=== PATIENT | female | born 1970 | race American Indian/Alaskan Native ===

== ENCOUNTER 2019-04-04 01:36 | Inpatient (IN) | payer SELFPAY ==
[2019-04-04] MEDS ORDERED: TYLENOL PO STA (01:44)
[2019-04-04] MEDS ORDERED: NACL 0.9% 500 ML 500 ML IV ONE (01:44)
[2019-04-04] MEDS ORDERED: SUBLIMAZE IV ONE (02:22)
[2019-04-04] MEDS ORDERED: NACL 0.9% 1000 ML 1,000 ML IV ONE (02:22)
[2019-04-04] MEDS ORDERED: NACL 0.9% 1000 ML 2,000 ML IV ONE (02:22)
[2019-04-04] MEDS ORDERED: NACL 0.9% 1000 ML 2,000 ML ONE (02:22)
--- NOTE | 2019-04-04 02:24 | Emergency Department Report ---
ED General Adult HPI - General Chief complaint: Fever Stated complaint: L LEG PAIN/PAIN OVER BODY Time Seen by Provider: 04/04/19 02:13 Source: patient, RN notes reviewed Mode of arrival: Ambulatory Limitations: Physical Limitation - History of Present Illness Initial comments: Primary care Dr.: Dr. Dunn; [facility] Past medical history: Hypertension, anemia This is a 48-year-old female. The patient is not known to this provider prev iously. The patient reports that she is not . The patient presents to the emergency room with a complaint of nontraumatic left sided leg pain, redness, discomfort. There is no trauma that she can recall. The pain started in her left groin, and moves distally on the anterior aspect of her left anterior lower extremity. The pain is burning and sharp, increases with palpation, and it decreases with rest. Positive fevers, positive chills, positive malaise, positive fatigue, positive anxiety. Positive mild headache. There is no neck stiffness. There is no sore throat. There is no chest pain. There is no abdominal pain. There are no urinary symptoms. There is no focal extremity weakness or numbness. Positive improvement with pain with IV pain medication ordered in the emergency room. -: Gradual, hour(s) Location: left, lower extremity Radiation: extremity Quality: aching Consistency: other Improves with: other Worsens with: other - Related Data Allergies Allergy/AdvReac Type Severity Reaction Status Date / Time No Known Allergies Allergy Verified 06/20/15 14:21 ED Review of Systems ROS: Stated complaint: L LEG PAIN/PAIN OVER BODY Other details as noted in HPI Constitutional: chills, fever, malaise Eyes: denies: eye discharge ENT: denies: epistaxis Respiratory: denies: cough Cardiovascular: denies: chest pain Gastrointestinal: denies: abdominal pain Genitourinary: denies: urgency, dysuria Musculoskeletal: arthralgia, myalgia Skin: rash, lesions Neurological: headache, weakness Psychiatric: anxiety ED Past Medical Hx - Past Medical History Previous Medical History?: Yes Hx Hypertension: Yes - Surgical History Past Surgical History?: Yes Additional Surgical History: tubal ligation - Social History Smoking Status: Never Smoker Substance Use Type: None ED Physical Exam - General Limitations: No Limitations General appearance: alert, anxious, in distress, obese - Head Head exam: Present: atraumatic, normocephalic - Eye Eye exam: Present: normal appearance, PERRL, EOMI. Absent: nystagmus - ENT ENT exam: Present: normal exam, normal orophraynx, mucous membranes moist, normal external ear exam - Neck Neck exam: Present: normal inspection, full ROM. Absent: tenderness, meningismus - Respiratory Respiratory exam: Present: normal lung sounds bilaterally. Absent: respiratory distress - Cardiovascular Cardiovascular Exam: Present: normal rhythm, tachycardia, normal heart sounds. Absent: systolic murmur, diastolic murmur, rubs, gallop - GI/Abdominal GI/Abdominal exam: Present: soft. Absent: distended, tenderness, guarding, re bound, rigid, pulsatile mass - Extremities Exam Extremities exam: Present: full ROM, tenderness (there is left groin tenderness. Chaperoned by nurse Mendez Baird. There is left medial thigh tenderness. There is left medial thigh warmth. The compartments are soft. There is left distal anterior tibial erythema. Compartments soft. No pain with passive range of motion of the great toe.), other (2+ pulses noted in the bilateral upper, lower extremities. Compartments soft. No long bony tenderness. The pelvis is stable.). Absent: normal inspection, pedal edema, joint swelling, calf tenderness - Back Exam Back exam: Present: normal inspection, full ROM. Absent: tenderness, CVA tenderness (R), paraspinal tenderness, vertebral tenderness - Neurological Exam Neurological exam: Present: alert, oriented X3, other (Extraocular movements intact. Tongue midline. No facial droop. Facial sensation intact to light touch in the V1, V2, V3 distribution bilaterally. 5 and 5 strength in 4 extremities.. Sensation is intact to light touch in 4 extremities.). Absent: motor sensory deficit - Psychiatric Psychiatric exam: Present: anxious - Skin Skin exam: Present: warm, erythema ED Course Vital Signs 04/04/19 04/04/19 04/04/19 01:39 01:41 02:18 Temperature 103.1 F H 103.1 F H Pulse Rate 133 H 132 H 128 H Respiratory 18 18 27 H Rate Blood Pressure 146/80 146/80 O2 Sat by Pulse 100 98 Oximetry 04/04/19 04/04/19 04/04/19 02:30 02:39 02:45 Temperature Pulse Rate 117 H 115 H Respiratory 17 18 20 Rate Blood Pressure 148/79 134/77 O2 Sat by Pulse 98 99 Oximetry 04/04/19 04/04/19 04/04/19 03:00 03:17 03:31 Temperature Pulse Rate 120 H 117 H 119 H Respiratory 23 18 24 Rate Blood Pressure 139/75 134/77 134/77 O2 Sat by Pulse 97 97 Oximetry - Reevaluation(s) Reevaluation #1: 04/04/19 03:05 Differential diagnosis, including but not limited to: Cellulitis, lymphangitis, myositis, sepsis Assessment and plan: 48-year-old female with evidence of left lower extremity cellulitis, manifest by warmth, redness, tenderness, fever, tachycardia, leukocytosis, meets criteria for sepsis secondary to presumed soft tissue infec tion. There is no crepitus noted. There is no pain with passive range of motion. The muscular compartments are soft. The patient is neurovascularly intact. This exam is not consistent with rhabdomyolysis, necrotizing fasciitis, or deep space infection. Patient feels improved after pain medication. Patient will be managed according to the sepsis pathway. Discussed this with patient and family who verbalized understanding, and who are amenable to admission for medical optimization. Reevaluation #2: 04/04/19 03:33 Dr. Diop accepts the patient to the medical service. ED Medical Decision Making - Lab Data Result diagrams: 04/04/19 01:52 04/04/19 01:52 Vital Signs 04/04/19 04/04/19 01:39 02:39 Temperature 103.1 F H Pulse Rate 133 H Respiratory 18 18 Rate Blood Pressure 146/80 O2 Sat by Pulse 100 Oximetry Lab Results 04/04/19 04/04/19 04/04/19 Range/Units 01:52 01:52 01:52 WBC 19.9 H (4.5-11.0) K/mm3 RBC 4.70 (3.65-5.03) M/mm3 Hgb 10.0 L (10.1-14.3) gm/dl Hct 33.0 (30.3-42.9) % MCV 70 L (79-97) fl MCH 21 L (28-32) pg MCHC 30 (30-34) % RDW 20.1 H (13.2-15.2) % Plt Count 386 (140-440) K/mm3 Lymph % (Auto) 5.9 L (13.4-35.0) % [place] % (Auto) 3.9 (0.0-7.3) % Eos % (Auto) 0.0 (0.0-4.3) % Baso % (Auto) 0.4 (0.0-1.8) % Lymph # 1.2 (1.2-5.4) K/mm3 [place] # 0.8 (0.0-0.8) K/mm3 Eos # 0.0 (0.0-0.4) K/mm3 Baso # 0.1 (0.0-0.1) K/mm3 Seg Neutrophils % 89.8 H (40.0-70.0) % Seg Neutrophils # 17.8 H (1.8-7.7) K/mm3 PT 12.7 (12.2-14.9) Sec. INR 0.90 (0.87-1.13) VBG pH (7.320-7.420) Sodium 136 L (137-145) mmol/L Potassium 3.6 (3.6-5.0) mmol/L Chloride 95.5 L (98-107) mmol/L Carbon Dioxide 26 (22-30) mmol/L Anion Gap 18 mmol/L BUN 8 (7-17) mg/dL Creatinine 0.8 (0.7-1.2) mg/dL Estimated GFR > 60 ml/min BUN/Creatinine Ratio 10 % Glucose 115 H (65-100) mg/dL Lactic Acid (0.7-2.0) mmol/L Calcium 9.4 (8.4-10.2) mg/dL Magnesium 1.60 L (1.7-2.3) mg/dL Total Bilirubin 0.50 (0.1-1.2) mg/dL AST 22 (5-40) units/L ALT 14 (7-56) units/L Alkaline Phosphatase 70 (35-129) units/L Total Creatine Kinase 212 H (30-135) units/L Total Protein 8.1 (6.3-8.2) g/dL Albumin 4.1 (3.9-5) g/dL Albumin/Globulin Ratio 1.0 % HCG, Quant (0-4) mIU/mL 04/04/19 04/04/19 04/04/19 Range/Units 01:52 01:52 02:06 WBC (4.5-11.0) K/mm3 RBC (3.65-5.03) M/mm3 Hgb (10.1-14.3) gm/dl Hct (30.3-42.9) % MCV (79-97) fl MCH (28-32) pg MCHC (30-34) % RDW (13.2-15.2) % Plt Count (140-440) K/mm3 Lymph % (Auto) (13.4-35.0) % [place] % (Auto) (0.0-7.3) % Eos % (Auto) (0.0-4.3) % Baso % (Auto) (0.0-1.8) % Lymph # (1.2-5.4) K/mm3 [place] # (0.0-0.8) K/mm3 Eos # (0.0-0.4) K/mm3 Baso # (0.0-0.1) K/mm3 Seg Neutrophils % (40.0-70.0) % Seg Neutrophils # (1.8-7.7) K/mm3 PT (12.2-14.9) Sec. INR (0.87-1.13) VBG pH 7.375 (7.320-7.420) Sodium (137-145) mmol/L Potassium (3.6-5.0) mmol/L Chloride (98-107) mmol/L Carbon Dioxide (22-30) mmol/L Anion Gap mmol/L BUN (7-17) mg/dL Creatinine (0.7-1.2) mg/dL Estimated GFR ml/min BUN/Creatinine Ratio % Glucose (65-100) mg/dL Lactic Acid 2.50 H* (0.7-2.0) mmol/L Calcium (8.4-10.2) mg/dL Magnesium (1.7-2.3) mg/dL Total Bilirubin (0.1-1.2) mg/dL AST (5-40) units/L ALT (7-56) units/L Alkaline Phosphatase (35-129) units/L Total Creatine Kinase (30-135) units/L Total Protein (6.3-8.2) g/dL Albumin (3.9-5) g/dL Albumin/Globulin Ratio % HCG, Quant < 2 (0-4) mIU/mL - EKG Data -: EKG Interpreted by Me Rate: tachycardia - EKG Data When compared to previous EKG there are: previous EKG unavailable 04/04/19 03:04 Sinus tachycardia, 121 bpm, normal axis, normal intervals, not consistent with ST elevation myocardial infarction, there is no prior EKG available for comparison. - Radiology Data Radiology results: pending, image reviewed interpreted by me: X-ray of the chest negative for acute disease. X-ray of the left femur, knee, tibia/fibula negative for acute disease. Critical Care Time: Yes Critical care time in (mins) excluding proc time.: 35 Critical care attestation.: If time is entered above; I have spent that time in minutes in the direct care of this critically ill patient, excluding procedure time. ED Disposition Clinical Impression: Sepsis due to skin infection, Hypomagnesemia Disposition: OP ADMIT IP TO THIS HOSP Is pt being admited?: Yes Condition: Good Referrals: RUPERTO KASPER MD [Primary Care Provider] - 3-5 Days
[2019-04-04 02:26] LABS: INR 0.9 (0.87-1.13)
[2019-04-04 02:35] LABS: Alanine Aminotransferase 14 units/L (7-56); Albumin 4.1 g/dL (3.9-5); BUN/Creatinine Ratio 10; Blood Urea Nitrogen 8 mg/dL (7-17); Calcium 9.4 mg/dL (8.4-10.2); Hemolysis Index 0
[2019-04-04 02:41] LABS: Basophils # (Auto) 0.1 K/mm3 (0.0-0.1); Basophils % (Auto) 0.4 % (0.0-1.8); Lymphocytes # (Auto) 1.2 K/mm3 (1.2-5.4); Lymphocytes % (Auto) 5.9 % (13.4-35.0); Mean Corpuscular HGB Conc 30 % (30-34); Mean Corpuscular Volume 70 fl (79-97); Monocytes # (Auto) 0.8 K/mm3 (0.0-0.8); Monocytes % (Auto) 3.9 % (0.0-7.3); Platelet Count 386 K/mm3 (140-440)
[2019-04-04] MEDS ORDERED: MAGNESIUM SULFATE 2GM/50ML 2 GM/50 ML BAG IV ONE (02:41)
[2019-04-04] MEDS ORDERED: ANCEF IV ONE (02:45)
[2019-04-04] MEDS ORDERED: NACL 0.9% IV ONE (02:45)
[2019-04-04 02:47] LABS: Red Cell Distribution Width 20.1 % (13.2-15.2)
[2019-04-04] MEDS ORDERED: ANCEF/STERILE WATER 2 GM/20 ML 2 GM/20 ML SYRINGE IV NR (03:00)
[2019-04-04] MEDS ORDERED: VANCOMYCIN/NS 1 GM/250 ML 1 GM/250 ML BAG IV ONE (04:00)
[2019-04-04] MEDS ORDERED: SODIUM CHLORIDE FLUSH SYRINGE 10 ML IV PRN (04:26)
[2019-04-04] MEDS ORDERED: MORPHINE IV PRN (04:26)
[2019-04-04] MEDS ORDERED: PROVENTIL IH PRN (04:26)
[2019-04-04] MEDS ORDERED: ZOFRAN IV PRN (04:26)
--- NOTE | 2019-04-04 04:36 | XRay Report ---
PROCEDURE: XR CHEST 1V AP TECHNIQUE: Chest radiograph single view. HISTORY: possible Sepsis COMPARISONS: None . FINDINGS: Heart: Normal. Mediastinum/Vessels: Normal. Lungs/Pleural space: Normal. Bony thorax: No acute osseous abnormality. Life support devices: None. IMPRESSION: No acute cardiopulmonary abnormality. This document is electronically signed by Romain Davidson MD., Apr 04 2019 04:34:27 AM ET
--- NOTE | 2019-04-04 04:55 | History and Physical Report ---
<MARIAN CHO - Last Filed: 04/04/19 04:58> History of Present Illness Date of examination: 04/04/19 Date of admission: 04/04/2019 Chief complaint: Left leg lesion and pain History of present illness: Patient is a 48-year-old female with PMHx of HTN, sarcoidosis, obesity who presents to the ER with left leg pain and lesion. Patient states that the pain started this morning under the left leg, and left groin and labial and travel to the left lower leg, is a cluster of red macular lesions, not nonpruritic, patient states that that she comes to the ER for evaluation of the lesion. Patient reports occasional shortness of breath for which she uses a inhaler, right perineal pain with no visible lesions, denies any cough, denies any chest pain, patient's reports shaking chills and palpitation. On arrival to the ER patient had a temperature of 103.1 month her heart rate is 133 she was started on IV vancomycin and Ceftriazone and admitted for further evaluation of her presenting symptoms. Past History Past Medical History: hypertension, other (sarcoidosis) Past Surgical History: No surgical history Social history: no significant social history Family history: no significant family history Medications and Allergies Allergies Allergy/AdvReac Type Severity Reaction Status Date / Time No Known Allergies Allergy Verified 06/20/15 14:21 Home Medications Medication Instructions Recorded Confirmed Last Taken Type Montelukast 10 mg PO DAILY 04/04/19 04/04/19 Unknown History hydroCHLOROthiazide 25 mg PO DAILY 04/04/19 04/04/19 Unknown History Potassium Chloride [K-Dur] 20 meq PO BID #8 tab 04/06/19 Unknown Rx cephALEXin [Keflex] 1,000 mg PO Q6HR 5 Days #40 capsule 04/06/19 Unknown Rx oxyCODONE /ACETAMINOPHEN [Percocet 1 tab PO Q6H PRN #10 tablet 04/06/19 Unknown Rx 5/325 mg] Active Meds: Active Medications Acetaminophen (Tylenol) 650 mg PO Q4H PRN PRN Reason: Pain MILD(1-3)/Fever >100.5/RODRIGUEZ Albuterol (Proventil) 2.5 mg IH Q3HRT PRN PRN Reason: Shortness Of Breath Enoxaparin Sodium (Lovenox) 40 mg SUB-Q QDAY PRASAD Vancomycin HCl (Vancomycin/Ns 1 Gm/250 Ml) 1 gm in 250 mls @ 167.007 mls/hr IV ONCE ONE; Protocol Stop: 04/04/19 05:29 Last Admin: 04/04/19 04:00 Dose: 167.007 mls/hr Documented by: Piperacillin Sod/Tazobactam Sod (Zosyn/Ns 4.5gm/100ml) 4.5 gm in 100 mls @ 200 mls/hr IV Q8HR PRASAD; Protocol Morphine Sulfate (Morphine) 2 mg IV Q4H PRN PRN Reason: Pain, Moderate (4-6) Ondansetron HCl (Zofran) 4 mg IV Q8H PRN PRN Reason: Nausea And Vomiting Sodium Chloride (Sodium Chloride Flush Syringe 10 Ml) 10 ml IV BID PRASAD Sodium Chloride (Sodium Chloride Flush Syringe 10 Ml) 10 ml IV PRN PRN PRN Reason: LINE FLUSH Review of Systems Constitutional: fever (chamber), chills, other Integumentary: rash, lesions Exam - Constitutional Vitals: Temp Pulse Resp BP Pulse Ox 103.1 F H 119 H 24 134/77 97 04/04/19 01:41 04/04/19 03:31 04/04/19 03:31 04/04/19 03:31 04/04/19 03:31 General appearance: Present: mild distress - EENT Eyes: Present: PERRL, EOM intact ENT: hearing intact - Neck Neck: Present: supple, normal ROM - Respiratory Respiratory effort: normal Respiratory: bilateral: diminished - Cardiovascular Rhythm: other (tachycardia) Heart Sounds: Present: S1 & S2 Peripheral Pulses: within normal limits - Abdominal General gastrointestinal: Present: deferred Female genitourinary: Present: deferred - Rectal Rectal Exam: deferred - Integumentary Integumentary: Present: warm, dry, erythema - Psychiatric Psychiatric: cooperative Results - Labs CBC & Chem 7: 04/04/19 01:52 04/04/19 01:52 Labs: Laboratory Last Values WBC 19.9 K/mm3 (4.5-11.0) H 04/04/19 01:52 RBC 4.70 M/mm3 (3.65-5.03) 04/04/19 01:52 Hgb 10.0 gm/dl (10.1-14.3) L 04/04/19 01:52 Hct 33.0 % (30.3-42.9) 04/04/19 01:52 MCV 70 fl (79-97) L 04/04/19 01:52 MCH 21 pg (28-32) L 04/04/19 01:52 MCHC 30 % (30-34) 04/04/19 01:52 RDW 20.1 % (13.2-15.2) H 04/04/19 01:52 Plt Count 386 K/mm3 (140-440) 04/04/19 01:52 Lymph % (Auto) 5.9 % (13.4-35.0) L 04/04/19 01:52 [place] % (Auto) 3.9 % (0.0-7.3) 04/04/19 01:52 Eos % (Auto) 0.0 % (0.0-4.3) 04/04/19 01:52 Baso % (Auto) 0.4 % (0.0-1.8) 04/04/19 01:52 Lymph # 1.2 K/mm3 (1.2-5.4) 04/04/19 01:52 [place] # 0.8 K/mm3 (0.0-0.8) 04/04/19 01:52 Eos # 0.0 K/mm3 (0.0-0.4) 04/04/19 01:52 Baso # 0.1 K/mm3 (0.0-0.1) 04/04/19 01:52 Seg Neutrophils % 89.8 % (40.0-70.0) H 04/04/19 01:52 Seg Neutrophils # 17.8 K/mm3 (1.8-7.7) H 04/04/19 01:52 PT 12.7 Sec. (12.2-14.9) 04/04/19 01:52 INR 0.90 (0.87-1.13) 04/04/19 01:52 VBG pH 7.375 (7.320-7.420) 04/04/19 01:52 Sodium 136 mmol/L (137-145) L 04/04/19 01:52 Potassium 3.6 mmol/L (3.6-5.0) 04/04/19 01:52 Chloride 95.5 mmol/L (98-107) L 04/04/19 01:52 Carbon Dioxide 26 mmol/L (22-30) 04/04/19 01:52 Anion Gap 18 mmol/L 04/04/19 01:52 BUN 8 mg/dL (7-17) 04/04/19 01:52 Creatinine 0.8 mg/dL (0.7-1.2) 04/04/19 01:52 Estimated GFR > 60 ml/min 04/04/19 01:52 BUN/Creatinine Ratio 10 % 04/04/19 01:52 Glucose 115 mg/dL (65-100) H 04/04/19 01:52 Lactic Acid 2.40 mmol/L (0.7-2.0) H* 04/04/19 03:04 Calcium 9.4 mg/dL (8.4-10.2) 04/04/19 01:52 Magnesium 1.60 mg/dL (1.7-2.3) L 04/04/19 01:52 Total Bilirubin 0.50 mg/dL (0.1-1.2) 04/04/19 01:52 AST 22 units/L (5-40) 04/04/19 01:52 ALT 14 units/L (7-56) 04/04/19 01:52 Alkaline Phosphatase 70 units/L (35-129) 04/04/19 01:52 Total Creatine Kinase 212 units/L (30-135) H 04/04/19 01:52 Total Protein 8.1 g/dL (6.3-8.2) 04/04/19 01:52 Albumin 4.1 g/dL (3.9-5) 04/04/19 01:52 Albumin/Globulin Ratio 1.0 % 04/04/19 01:52 HCG, Quant < 2 mIU/mL (0-4) 04/04/19 02:06 Assessment and Plan Assessment and plan: 1. Acute febrile illness 2. Left groin pain (etiology unclear) 3. Left leg erythema-like lesion (likely erythema nodosum) 4. History of sarcoidosis 5. HTN (BP stable) 6. Dehydration 7. Obesity Plan: Patient is admitted for acute fever and leg lesions Started on antibiotics with Vanco and Zosyn Consult ID for management IV fluids for hydration DVT prophylaxis with Lovenox Patient takes no home meds Plan of care discussed with patient, voiced understanding Patient's condition and plan of care discussed with Dr. Diop Advance Directives: Yes VTE prophylaxis?: Chemical Plan of care discussed with patient/family: Yes <KHOA DIOP - Last Filed: 04/12/19 23:07> History of Present Illness Date of admission: 04/04/19 05:19 Medications and Allergies Active Meds: Active Medications Acetaminophen (Tylenol) 650 mg PO Q4H PRN PRN Reason: Pain MILD(1-3)/Fever >100.5/RODRIGUEZ Albuterol (Proventil) 2.5 mg IH Q3HRT PRN PRN Reason: Shortness Of Breath Enoxaparin Sodium (Lovenox) 40 mg SUB-Q QDAY PRASAD Piperacillin Sod/Tazobactam Sod (Zosyn/Ns 4.5gm/100ml) 4.5 gm in 100 mls @ 200 mls/hr IV Q8HR PRASAD; Protocol Sodium Chloride (Nacl 0.9% 1000 Ml) 1,000 mls @ 100 mls/hr IV DIRECT PRASAD Morphine Sulfate (Morphine) 2 mg IV Q4H PRN PRN Reason: Pain, Moderate (4-6) Ondansetron HCl (Zofran) 4 mg IV Q8H PRN PRN Reason: Nausea And Vomiting Sodium Chloride (Sodium Chloride Flush Syringe 10 Ml) 10 ml IV BID PRASAD Sodium Chloride (Sodium Chloride Flush Syringe 10 Ml) 10 ml IV PRN PRN PRN Reason: LINE FLUSH Exam - Constitutional Vitals: Temp Pulse Resp BP Pulse Ox 103.1 F H 119 H 24 134/77 97 04/04/19 01:41 04/04/19 03:31 04/04/19 03:31 04/04/19 03:31 04/04/19 03:31 Results - Labs CBC & Chem 7: 04/05/19 10:51 04/06/19 10:56 Labs: Laboratory Last Values WBC 19.9 K/mm3 (4.5-11.0) H 04/04/19 01:52 RBC 4.70 M/mm3 (3.65-5.03) 04/04/19 01:52 Hgb 10.0 gm/dl (10.1-14.3) L 04/04/19 01:52 Hct 33.0 % (30.3-42.9) 04/04/19 01:52 MCV 70 fl (79-97) L 04/04/19 01:52 MCH 21 pg (28-32) L 04/04/19 01:52 MCHC 30 % (30-34) 04/04/19 01:52 RDW 20.1 % (13.2-15.2) H 04/04/19 01:52 Plt Count 386 K/mm3 (140-440) 04/04/19 01:52 Lymph % (Auto) 5.9 % (13.4-35.0) L 04/04/19 01:52 [place] % (Auto) 3.9 % (0.0-7.3) 04/04/19 01:52 Eos % (Auto) 0.0 % (0.0-4.3) 04/04/19 01:52 Baso % (Auto) 0.4 % (0.0-1.8) 04/04/19 01:52 Lymph # 1.2 K/mm3 (1.2-5.4) 04/04/19 01:52 [place] # 0.8 K/mm3 (0.0-0.8) 04/04/19 01:52 Eos # 0.0 K/mm3 (0.0-0.4) 04/04/19 01:52 Baso # 0.1 K/mm3 (0.0-0.1) 04/04/19 01:52 Seg Neutrophils % 89.8 % (40.0-70.0) H 04/04/19 01:52 Seg Neutrophils # 17.8 K/mm3 (1.8-7.7) H 04/04/19 01:52 PT 12.7 Sec. (12.2-14.9) 04/04/19 01:52 INR 0.90 (0.87-1.13) 04/04/19 01:52 VBG pH 7.375 (7.320-7.420) 04/04/19 01:52 Sodium 136 mmol/L (137-145) L 04/04/19 01:52 Potassium 3.6 mmol/L (3.6-5.0) 04/04/19 01:52 Chloride 95.5 mmol/L (98-107) L 04/04/19 01:52 Carbon Dioxide 26 mmol/L (22-30) 04/04/19 01:52 Anion Gap 18 mmol/L 04/04/19 01:52 BUN 8 mg/dL (7-17) 04/04/19 01:52 Creatinine 0.8 mg/dL (0.7-1.2) 04/04/19 01:52 Estimated GFR > 60 ml/min 04/04/19 01:52 BUN/Creatinine Ratio 10 % 04/04/19 01:52 Glucose 115 mg/dL (65-100) H 04/04/19 01:52 Lactic Acid 2.30 mmol/L (0.7-2.0) H* 04/04/19 04:23 Calcium 9.4 mg/dL (8.4-10.2) 04/04/19 01:52 Magnesium 1.60 mg/dL (1.7-2.3) L 04/04/19 01:52 Total Bilirubin 0.50 mg/dL (0.1-1.2) 04/04/19 01:52 AST 22 units/L (5-40) 04/04/19 01:52 ALT 14 units/L (7-56) 04/04/19 01:52 Alkaline Phosphatase 70 units/L (35-129) 04/04/19 01:52 Total Creatine Kinase 212 units/L (30-135) H 04/04/19 01:52 Total Protein 8.1 g/dL (6.3-8.2) 04/04/19 01:52 Albumin 4.1 g/dL (3.9-5) 04/04/19 01:52 Albumin/Globulin Ratio 1.0 % 04/04/19 01:52 HCG, Quant < 2 mIU/mL (0-4) 04/04/19 02:06 Assessment and Plan Assessment and plan: This is a 48-year-old woman with a history of hypertension comes emergency room with complaints of pain in the left groin, inner thigh area radiating down into the left leg. The leg became red, difficulty ambulating, also complaining of fever and chills. Patient with acute cellulitis, started Vanco, Zosyn. Please follow CT, agree with infectious disease consult.
--- NOTE | 2019-04-04 06:09 | XRay Report ---
PROCEDURE: LEFT KNEE, 2 VIEWS TECHNIQUE: LEFT knee radiographs, AP and lateral views. CPT 82460 HISTORY: Trauma COMPARISONS: None . FINDINGS: Fracture (s) and/or Dislocation(s): None . Alignment: Normal . Joint space(s): Normal . Soft tissues: Normal . Bone mineralization: Normal . Foreign bodies: None . IMPRESSION: Normal Examination . This document is electronically signed by Romain Davidson MD., Apr 04 2019 06:07:28 AM ET
--- NOTE | 2019-04-04 06:25 | XRay Report ---
PROCEDURE: LEFT FEMUR TECHNIQUE: LEFT femur radiographs, AP and lateral views. CPT 92366 HISTORY: Trauma COMPARISONS: None . FINDINGS: Fracture (s) and/or Dislocation(s): None . Joint space(s): Normal . Soft tissues: Normal . Bone mineralization: Normal . Foreign bodies: None . IMPRESSION: Normal Examination . This document is electronically signed by Romain Davidson MD., Apr 04 2019 06:23:10 AM ET
[2019-04-04] MEDS: ZOSYN/NS 4.5GM/100ML 4.5 GM/100 ML VIAL IV SCH ×2 (06:30→14:58)
--- NOTE | 2019-04-04 06:35 | Event Note ---
Date: 04/04/19 Dr. Zavala was called regarding the consultation for for evaluation for left leg lesion and elevated temperature, as spoke dirrectly to Dr Zavala, no new orders was given.
[2019-04-04] MEDS ORDERED: ZOSYN/NS 4.5GM/100ML 4.5 GM/100 ML VIAL IV ONE (06:41)
--- NOTE | 2019-04-04 06:42 | XRay Report ---
PROCEDURE: XR TIBIA FIBULA 2V LT TECHNIQUE: Left tibia and fibula radiographs, AP and lateral views. HISTORY: left leg pain swelling COMPARISONS: None. FINDINGS: Fracture (s) and/or Dislocation(s): None. Joint space(s): Normal. Soft tissues: Normal. Bone mineralization: Normal. Foreign bodies: None. IMPRESSION: Normal Examination. This document is electronically signed by Romain Davidson MD., Apr 04 2019 06:40:54 AM ET
[2019-04-04] MEDS: NACL 0.9% 1000 ML 1,000 ML IV SCH ×2 (07:38→22:51)
[2019-04-04] MEDS ORDERED: TYLENOL ONE (07:41)
[2019-04-04] MEDS ORDERED: NACL 0.9% 1000 ML 1,000 ML ONE (07:42)
[2019-04-04] MEDS: TYLENOL PO PRN ×2 (07:49→10:55)
[2019-04-04 08:10] LABS: Bilirubin,Urine NEG (Negative); Blood,Urine SM (Negative); Color,Urine Yellow (Yellow); Mucus,Urine FEW /HPF; Protein,Urine <15 mg/dL mg/dL (Negative); Urobilinogen,Urine < 2.0 mg/dL (<2.0)
--- NOTE | 2019-04-04 08:56 | Cat Scan Report ---
CT scan of left lower extremity: History: Leg pain and sepsis. Findings: The hip joint appears unremarkable. No previous evidence of acute fracture or soft tissue calcification. The left femur tibia and fibula appears unremarkable. Arthritic changes are noted at the left knee joint. No joint effusion. Visualized portion of the foot appears unremarkable the pancreas appears normal. No fracture. Impression: No evidence of acute fracture. No periosteal reaction or soft tissue mass or calcification the
[2019-04-04] MEDS: LOVENOX SUB-Q SCH (10:55)
[2019-04-04] MEDS: SODIUM CHLORIDE FLUSH SYRINGE 10 ML IV SCH ×2 (10:56→22:52)
[2019-04-04] MEDS ORDERED: NON-FORMULARY (Montelukast 10 MG) PO SCH (11:15)
--- NOTE | 2019-04-04 12:49 | Event Note ---
Date: 04/04/19 Patient seen and examined Patient is a 48-year-old female with PMHx of HTN, sarcoidosis, obesity who presented to ER with left leg pain and cellulites. Continue current Mx and plan as dictated in h and P.
--- NOTE | 2019-04-04 15:10 | Consultation ---
History of Present Illness - Reason for Consult Consult date: 04/04/19 fever, rash Requesting physician: MARIAN CHO - History of Present Illness 48-year-old female with history of HTN, sarcoidosis, obesity admitted on 04/04/2019 due to 24 hour history of acute severe left groin and inner thigh pain and redness radiated to anterior left calf. Denies recent injury, itching. Pain is burning and sharp, increases with palpation. She also noted high fever, chills, nausea and malaise. Positive mild headache. There is no sore throat. Denies urinary symptoms. On arrival to the ER patient had a temperature of 103.1, HR 133, BP 146/80. WBC 19.9. Creat 0.8. Lactate 2.5. CK 212. Blood cultures 04/04/[address] leg no mass or collections. Review of Systems: General: + fever, +chills, +malaise Cutaneous: no rash, pruritus Head: no headaches or injury Eyes: no changes in vision, eye pain, double vision Ears: no ear pain, ear discharge, ringing or hearing loss Nose: no nose bleeding, stuffiness Mouth & throat: no bleeding gums, no horseness, no dental problems, or swollen glands Neck: no pain, node enlargement/lumps, tyroid enlargement or tenderness Respiratory: no cough, wheezing, sputum, hemoptysis, pleuritic chest pain Cardiovascular: no chest pain, leg edema, cyanosis, MARKHAM, orthopnea Musculoskeletal: +left groin and inner thigh pain and redness radiated to anterior left calf. Gastrointestinal: no nausea, vomiting, hematemesis, diarrhea, constipation, melena, bright red blood in stools, fecal incontinence, jaundice Genitourinary/Reproductive: no frequent urination, dysuria, hematuria, incontinence Neurogical: no seizures, no headaches, no weakness, no paresthesias, no loss of speech or vision; no memory loss, no vertigo, no tremors, no numbness Psychiatric: stable mood; no excessive anxiety, sadness or moodiness Past History Past Medical History: hypertension, other (sarcoidosis) Past Surgical History: No surgical history Social history: no significant social history Family history: no significant family history Medications and Allergies Allergies Allergy/AdvReac Type Severity Reaction Status Date / Time No Known Allergies Allergy Verified 06/20/15 14:21 Home Medications Medication Instructions Recorded Confirmed Last Taken Type Montelukast 10 mg PO DAILY 04/04/19 04/04/19 Unknown History hydroCHLOROthiazide 25 mg PO DAILY 04/04/19 04/04/19 Unknown History Active Meds: Active Medications Acetaminophen (Tylenol) 650 mg PO Q4H PRN PRN Reason: Pain MILD(1-3)/Fever >100.5/RODRIGUEZ Last Admin: 04/04/19 10:55 Dose: 650 mg Documented by: Albuterol (Proventil) 2.5 mg IH Q3HRT PRN PRN Reason: Shortness Of Breath Enoxaparin Sodium (Lovenox) 40 mg SUB-Q QDAY [facility] Last Admin: 04/04/19 10:55 Dose: 40 mg Documented by: Piperacillin Sod/Tazobactam Sod (Zosyn/Ns 4.5gm/100ml) 4.5 gm in 100 mls @ 200 mls/hr IV Q8HR PRASAD; Protocol Last Admin: 04/04/19 14:58 Dose: 200 mls/hr Documented by: Sodium Chloride (Nacl 0.9% 1000 Ml) 1,000 mls @ 100 mls/hr IV DIRECT PRASAD Last Admin: 04/04/19 07:38 Dose: 100 mls/hr Documented by: Montelukast Sodium (Singulair) 10 mg PO QHS PRASAD Morphine Sulfate (Morphine) 2 mg IV Q4H PRN PRN Reason: Pain, Moderate (4-6) Ondansetron HCl (Zofran) 4 mg IV Q8H PRN PRN Reason: Nausea And Vomiting Sodium Chloride (Sodium Chloride Flush Syringe 10 Ml) 10 ml IV BID [facility] Last Admin: 04/04/19 10:56 Dose: 10 ml Documented by: Sodium Chloride (Sodium Chloride Flush Syringe 10 Ml) 10 ml IV PRN PRN PRN Reason: LINE FLUSH Physical Examination - Physical Exam Narrative exam: General appearance: Alert in NAD, conversant Eyes: anicteric sclerae, moist conjunctivae; no lid-lag; PERRLA HENT: Atraumatic; oropharynx clear with moist mucous membranes and no mucosal ulcerations/no oral thrush; normal hard and soft palate. Normal external ears. Neck: Trachea midline; supple, no thyromegaly or lymphadenopathy Lungs: CTA, with normal respiratory effort and no intercostal retractions CV: RRR, no murmurs Abdomen: Soft, non-tender; no masses or hepatosplenomegaly Extremities: +left groin enlarged LN tender, with erythema and tenderness inner thigh and anterior calf with tenderness Skin: Normal temperature, turgor and texture; no rash, ulcers or subcutaneous nodules Psych: Appropriate affect, alert and oriented to person, place and time. Neuro: alert and oriented x 3. Moving all extermities - Constitutional Vitals: Vital Signs Temp Pulse Resp BP Pulse Ox 97.8 F 111 H 20 119/65 95 04/04/19 11:56 04/04/19 11:57 04/04/19 13:39 04/04/19 11:56 04/04/19 13:36 Temperature -Last 24 Hours Temperature 97.8 F Temperature 99.9 F Temperature 100.0 F Temperature 103.1 F Temperature 103.1 F Results - Labs CBC & Chem 7: 04/04/19 01:52 04/04/19 01:52 Labs: Abnormal lab results 04/04/19 04/04/19 04/04/19 Range/Units 01:52 01:52 01:52 WBC 19.9 H (4.5-11.0) K/mm3 Hgb 10.0 L (10.1-14.3) gm/dl MCV 70 L (79-97) fl MCH 21 L (28-32) pg RDW 20.1 H (13.2-15.2) % Lymph % (Auto) 5.9 L (13.4-35.0) % Seg Neutrophils % 89.8 H (40.0-70.0) % Seg Neutrophils # 17.8 H (1.8-7.7) K/mm3 Sodium 136 L (137-145) mmol/L Chloride 95.5 L (98-107) mmol/L Glucose 115 H (65-100) mg/dL Lactic Acid 2.50 H* (0.7-2.0) mmol/L Magnesium 1.60 L (1.7-2.3) mg/dL Total Creatine Kinase 212 H (30-135) units/L Ur Specific [place] (1.003-1.030) 04/04/19 04/04/19 04/04/19 Range/Units 03:04 04:23 07:31 WBC (4.5-11.0) K/mm3 Hgb (10.1-14.3) gm/dl MCV (79-97) fl MCH (28-32) pg RDW (13.2-15.2) % Lymph % (Auto) (13.4-35.0) % Seg Neutrophils % (40.0-70.0) % Seg Neutrophils # (1.8-7.7) K/mm3 Sodium (137-145) mmol/L Chloride (98-107) mmol/L Glucose (65-100) mg/dL Lactic Acid 2.40 H* 2.30 H* (0.7-2.0) mmol/L Magnesium (1.7-2.3) mg/dL Total Creatine Kinase (30-135) units/L Ur Specific [place] 1.035 H (1.003-1.030) Assessment and Plan Cultures: Blood cultures 04/04/2019 negative. Assessment: 48-year-old female with history of HTN, sarcoidosis, obesity admitted on 04/04/2019 due to 24 hour history of acute severe left groin and inner thigh pain and redness radiated to anterior left calf associated with high fever, chills, nausea and malaise: 1) Severe Sepsis: Present on admission, manifested by fever, tachycardia, leukocytosis, bandemia, increased lactate. Etiology most likely left leg cellulitis. 2) Acute left leg cellulitis with presumed lymphangitis: likely due to Strep (?GAS) less likely Staph. CT leg no mass or collections. Recommendations: - follow-up blood cultures - stop zosyn - start cefazolin and clindamycin until Group A Strep is ruled out - continue vancomyicn for now, will stop soon - check MRSA PCR - left leg elevation Will follow. Jeny Martinez MD Infectious Diseases [facility] M [phone] O [phone]
[2019-04-04] MEDS ORDERED: .VANCOMYCIN VIAL 1,000 MG in NACL 0.9% 100 ML IV SCH (16:00)
[2019-04-04] MEDS: CLEOCIN 600 MG/50 mL 600 MG/50 ML BAG IV SCH (17:06)
[2019-04-04] MEDS: PERCOCET 5/325 PO PRN ×2 (17:07→22:50)
[2019-04-04] MEDS: ceFAZolin 2 GM in NACL 0.9% 100 ML IV SCH (18:18)
[2019-04-04] MEDS: VANCOMYCIN 2,000 MG in NACL 0.9% 500 ML 500 ML IV SCH (19:27)
[2019-04-04] MEDS: SINGULAIR PO SCH (22:50)
[2019-04-05] MEDS: CLEOCIN 600 MG/50 mL 600 MG/50 ML BAG IV SCH ×3 (01:44→17:15)
[2019-04-05] MEDS: ceFAZolin 2 GM in NACL 0.9% 100 ML IV SCH ×3 (03:07→16:13)
[2019-04-05 07:25] LABS: BUN/Creatinine Ratio 7; Blood Urea Nitrogen 4 mg/dL (7-17); Calcium 7.1 mg/dL (8.4-10.2)
[2019-04-05 07:25] LABS: Basophils # (Auto) 0.1 K/mm3 (0.0-0.1); Basophils % (Auto) 0.9 % (0.0-1.8); Eosinophils % (Auto) 0.2 % (0.0-4.3); Hemoglobin 8.4 gm/dl (10.1-14.3); Lymphocytes # (Auto) 1.4 K/mm3 (1.2-5.4); Lymphocytes % (Auto) 11.5 % (13.4-35.0); Mean Corpuscular HGB Conc 30 % (30-34); Monocytes # (Auto) 0.9 K/mm3 (0.0-0.8); Monocytes % (Auto) 7.2 % (0.0-7.3); Platelet Count 297 K/mm3 (140-440); Red Blood Count 4.02 M/mm3 (3.65-5.03)
[2019-04-05 07:26] LABS: Hemolysis Index 18
[2019-04-05 07:31] LABS: Mean Corpuscular Volume 70 fl (79-97); Red Cell Distribution Width 20.3 % (13.2-15.2)
[2019-04-05] MEDS: PERCOCET 5/325 PO PRN ×3 (08:47→22:08)
--- NOTE | 2019-04-05 08:51 | Progress Note ---
Assessment and Plan Cultures: Blood cultures 04/04/2019 no growth to date Assessment: 48-year-old female with history of HTN, sarcoidosis, obesity admitted on 04/04/2019 due to 24 hour history of acute severe left groin and inner thigh pain and redness radiated to anterior left calf associated with high fever, chills, nausea and malaise: 1) Severe Sepsis: Improved. Leukocytosis trending down. Low grad fevers cont inuing.. Etiology most likely left leg cellulitis. 2) Acute left leg cellulitis with presumed lymphangitis: likely due to Strep (?GAS) less likely Staph. CT leg no mass or collections. Recommendations: - follow-up blood cultures - continue cefazolin and clindamycin until Group A Strep is ruled out, D2 - discontinue vancomyicn - f/u MRSA PCR- Ordered not collected - left leg elevation - Anticipate discharge of Keflex 1 gm PO QID total 7 days ending 04-10-19 [facility] M: [id number] O:[phone] Subjective Date of service: 04/05/19 Interval history: Patient seen and examined. Reports generalized weakness with pain continuing in the left leg. No fevers. Objective - Exam Narrative Exam: General appearance: Alert in NAD, conversant Eyes: anicteric sclerae, moist conjunctivae; no lid-lag; PERRLA HENT: Atraumatic; oropharynx clear with moist mucous membranes and no mucosal ulcerations/no oral thrush; normal hard and soft palate. Normal external ears. Neck: Trachea midline; supple, no thyromegaly or lymphadenopathy Lungs: CTA, with normal respiratory effort and no intercostal retractions CV: RRR, no murmurs Abdomen: Soft, non-tender; no masses or hepatosplenomegaly Extremities: +left groin enlarged LN tender, with erythema and tenderness inner thigh and anterior calf with tenderness Skin: Normal temperature, turgor and texture; no rash, ulcers or subcutaneous nodules Psych: Appropriate affect, alert and oriented to person, place and time. Neuro: alert and oriented x 3. Moving all extremities - Constitutional Vitals: Vital Signs Temp Pulse Resp BP Pulse Ox 99.7 F H 97 H 18 128/69 99 04/04/19 22:55 04/04/19 22:55 04/05/19 08:47 04/04/19 22:55 04/04/19 22:55 Temperature -Last 24 Hours Temperature 99.7 F Temperature 100.4 F Temperature 97.8 F Temperature 99.9 F - Labs CBC & Chem 7: 04/05/19 10:51 04/05/19 10:51 Labs: Abnormal lab results 04/05/19 04/05/19 Range/Units 04:00 06:04 WBC 12.5 H (4.5-11.0) K/mm3 Hgb 8.4 L (10.1-14.3) gm/dl Hct 28.0 L (30.3-42.9) % MCV 70 L (79-97) fl MCH 21 L (28-32) pg RDW 20.3 H (13.2-15.2) % Lymph % (Auto) 11.5 L (13.4-35.0) % [place] # 0.9 H (0.0-0.8) K/mm3 Seg Neutrophils % 80.2 H (40.0-70.0) % Seg Neutrophils # 10.0 H (1.8-7.7) K/mm3 Sodium 135 L (137-145) mmol/L Potassium 3.4 L (3.6-5.0) mmol/L Carbon Dioxide 21 L (22-30) mmol/L BUN 4 L (7-17) mg/dL Creatinine 0.6 L (0.7-1.2) mg/dL Calcium 7.1 L D (8.4-10.2) mg/dL
[2019-04-05] MEDS: LOVENOX SUB-Q SCH (09:38)
[2019-04-05] MEDS: VANCOMYCIN 2,000 MG in NACL 0.9% 500 ML 500 ML IV SCH (09:44)
[2019-04-05 11:18] LABS: Hematocrit 26.1 % (30.3-42.9); Mean Corpuscular HGB Conc 31 % (30-34); Platelet Count 292 K/mm3 (140-440); Red Blood Count 3.75 M/mm3 (3.65-5.03)
[2019-04-05 11:22] LABS: Mean Corpuscular Volume 70 fl (79-97); Red Cell Distribution Width 20.4 % (13.2-15.2)
[2019-04-05 11:39] LABS: BUN/Creatinine Ratio 5; Blood Urea Nitrogen 3 mg/dL (7-17); Hemolysis Index 5
[2019-04-05] MEDS: SODIUM CHLORIDE FLUSH SYRINGE 10 ML IV SCH ×2 (16:19→22:05)
[2019-04-05] MEDS ORDERED: DULCOLAX PR PRN (17:02)
[2019-04-05] MEDS ORDERED: MIRALAX 3350 PO PRN (17:02)
--- NOTE | 2019-04-05 17:05 | Progress Note ---
Assessment and Plan 1. Sepsis with left leg cellulitis 2. left leg cellulitis 3. hypokalemia 4. History of sarcoidosis 5. HTN (BP stable) 6. Dehydration 7. Obesity Plan: Patient is admitted for acute fever and leg lesions CT LLE showed nofracture or abscess Consulted ID for management and discharge abx recommendation continue cefazolin and clindamycin until Group A Strep is ruled out per ID cont IV fluids for hydration and replete electrolytes DVT prophylaxis with Lovenox, dietary recommendation Plan of care discussed with patient, voiced understanding CT left LE : No evidence of acute fracture. No periosteal reaction or soft tissue mass or calcification. Subjective Date of service: 04/05/19 Interval history: Patient seen and examined cont to c/o left leg pain MRSA PCR pending, c/o constipation Objective - Constitutional Vitals: Vital Signs - 12hr 04/05/19 04/05/19 04/05/19 08:47 09:47 12:02 Temperature 98.0 F Pulse Rate 90 Respiratory 18 18 18 Rate Blood Pressure 132/77 O2 Sat by Pulse 95 Oximetry 04/05/19 13:00 Temperature Pulse Rate Respiratory Rate Blood Pressure O2 Sat by Pulse 93 Oximetry General appearance: Present: no acute distress, well-nourished - EENT Eyes: PERRL, EOM intact ENT: hearing intact, clear oral mucosa Ears: bilateral: normal - Neck Neck: supple, normal ROM - Respiratory Respiratory effort: normal Respiratory: bilateral: CTA - Cardiovascular Rhythm: regular Heart Sounds: Present: S1 & S2. Absent: gallop, rub Extremities: pulses intact, abnormal (+left groin enlarged LN tender, with erythema and tenderness inner thigh and anterior calf with tenderness) - Gastrointestinal General gastrointestinal: Present: soft, non-tender, non-distended, normal bowel sounds - Genitourinary Female genitourinary: normal - Integumentary Integumentary: clear, warm, dry - Musculoskeletal Musculoskeletal: 1, strength equal bilaterally - Neurologic Neurologic: moves all extremities - Psychiatric Psychiatric: memory intact, appropriate mood/affect, intact judgment & insight - Labs CBC & Chem 7: 04/05/19 10:51 04/05/19 10:51 Labs: Abnormal lab results 04/05/19 04/05/19 04/05/19 Range/Units 04:00 06:04 10:51 WBC 12.5 H 11.9 H (4.5-11.0) K/mm3 Hgb 8.4 L 8.0 L (10.1-14.3) gm/dl Hct 28.0 L 26.1 L (30.3-42.9) % MCV 70 L 70 L (79-97) fl MCH 21 L 21 L (28-32) pg RDW 20.3 H 20.4 H (13.2-15.2) % Lymph % (Auto) 11.5 L (13.4-35.0) % [place] # 0.9 H (0.0-0.8) K/mm3 Seg Neutrophils % 80.2 H (40.0-70.0) % Seg Neutrophils # 10.0 H (1.8-7.7) K/mm3 Sodium 135 L (137-145) mmol/L Potassium 3.4 L (3.6-5.0) mmol/L Carbon Dioxide 21 L (22-30) mmol/L BUN 4 L (7-17) mg/dL Creatinine 0.6 L (0.7-1.2) mg/dL Glucose (65-100) mg/dL Calcium 7.1 L D (8.4-10.2) mg/dL 04/05/19 Range/Units 10:51 WBC (4.5-11.0) K/mm3 Hgb (10.1-14.3) gm/dl Hct (30.3-42.9) % MCV (79-97) fl MCH (28-32) pg RDW (13.2-15.2) % Lymph % (Auto) (13.4-35.0) % [place] # (0.0-0.8) K/mm3 Seg Neutrophils % (40.0-70.0) % Seg Neutrophils # (1.8-7.7) K/mm3 Sodium 136 L (137-145) mmol/L Potassium 3.2 L (3.6-5.0) mmol/L Carbon Dioxide 21 L (22-30) mmol/L BUN 3 L (7-17) mg/dL Creatinine 0.6 L (0.7-1.2) mg/dL Glucose 138 H (65-100) mg/dL Calcium 7.0 L (8.4-10.2) mg/dL
[2019-04-05] MEDS ORDERED: K-DUR PO ONE (18:00)
[2019-04-05] MEDS: COLACE PO SCH (22:04)
[2019-04-05] MEDS: SINGULAIR PO SCH (22:04)
[2019-04-06] MEDS: ceFAZolin 2 GM in NACL 0.9% 100 ML IV SCH ×2 (01:02→10:22)
[2019-04-06] MEDS: CLEOCIN 600 MG/50 mL 600 MG/50 ML BAG IV SCH ×2 (02:07→10:27)
[2019-04-06] MEDS: NACL 0.9% 1000 ML 1,000 ML IV SCH (05:27)
[2019-04-06] MEDS: PERCOCET 5/325 PO PRN ×2 (06:35→13:20)
--- NOTE | 2019-04-06 09:25 | Progress Note ---
Assessment and Plan Cultures: Blood cultures 04/04/2019 no growth to date Urine cultures 04/04/2019 no growth to date Group A Strep 04/04/2019 negative Assessment: 48-year-old female with history of HTN, sarcoidosis, obesity admitted on 04/04/2019 due to 24 hour history of acute severe left groin and inner thigh pain and redness radiated to anterior left calf associated with high fever, chills, nausea and malaise: 1) Severe Sepsis: Improved. Leukocytosis trending down. no fevers in >24 hours. Etiology most likely left leg cellulitis. 2) Acute left leg cellulitis with presumed lymphangitis: likely due to Strep ( ?GAS) less likely Staph. CT leg no mass or collections. Recommendations: - follow-up blood cultures - continue cefazolin 2gms IV every 8 hours while inpatient - discontinue clindamycin - f/u MRSA PCR- Ordered not collected - left leg elevation - Anticipate discharge on Keflex 1 gm PO QID total 7 days ending 04-10-19 Clinically stable ID is signing off [facility] M: [id number] O:[phone] Subjective Date of service: 04/06/19 Interval history: Patient seen and examined. Reports generalized weakness with pain continuing in the left leg. No fevers. Objective - Exam Narrative Exam: General appearance: Alert in NAD, conversant Eyes: anicteric sclerae, moist conjunctivae; no lid-lag; PERRLA HENT: Atraumatic; oropharynx clear with moist mucous membranes and no mucosal ulcerations/no oral thrush; normal hard and soft palate. Normal external ears. Neck: Trachea midline; supple, no thyromegaly or lymphadenopathy Lungs: CTA, with normal respiratory effort and no intercostal retractions CV: RRR, no murmurs Abdomen: Soft, non-tender; no masses or hepatosplenomegaly Extremities: +left groin enlarged LN tender, with erythema and tenderness inner thigh and anterior calf with tenderness Skin: Normal temperature, turgor and texture; no rash, ulcers or subcutaneous nodules Psych: Appropriate affect, alert and oriented to person, place and time. Neuro: alert and oriented x 3. Moving all extremities - Constitutional Vitals: Vital Signs Temp Pulse Resp BP Pulse Ox 99.6 F 88 18 133/82 96 04/06/19 05:28 04/06/19 05:28 04/06/19 05:28 04/06/19 05:28 04/06/19 05:28 Temperature -Last 24 Hours Temperature 99.6 F Temperature 98.4 F Temperature 98.6 F Temperature 98.0 F - Labs CBC & Chem 7: 04/05/19 10:51 04/06/19 10:56 Labs: Abnormal lab results 04/05/19 04/05/19 Range/Units 10:51 10:51 WBC 11.9 H (4.5-11.0) K/mm3 Hgb 8.0 L (10.1-14.3) gm/dl Hct 26.1 L (30.3-42.9) % MCV 70 L (79-97) fl MCH 21 L (28-32) pg RDW 20.4 H (13.2-15.2) % Sodium 136 L (137-145) mmol/L Potassium 3.2 L (3.6-5.0) mmol/L Carbon Dioxide 21 L (22-30) mmol/L BUN 3 L (7-17) mg/dL Creatinine 0.6 L (0.7-1.2) mg/dL Glucose 138 H (65-100) mg/dL Calcium 7.0 L (8.4-10.2) mg/dL
[2019-04-06] MEDS: SODIUM CHLORIDE FLUSH SYRINGE 10 ML IV SCH (10:32)
[2019-04-06] MEDS: LOVENOX SUB-Q SCH (10:32)
[2019-04-06] MEDS: COLACE PO SCH (10:33)
--- NOTE | 2019-04-06 11:27 | Discharge Summary ---
Providers - Providers Date of Admission: 04/04/19 05:19 Date of discharge: 04/06/19 Attending physician: RICARDO FERNANDEZ 04/04/19 04:26 Consult to Physician [CONS] Routine Comment: Consulting Provider: MIK MORGAN Physician Instructions: Reason For Exam: skin lesion [facility] Hospital course: 48-year-old female with history of HTN, sarcoidosis, obesity admitted on 04/04/2019 due to 24 hour history of acute severe left groin and inner thigh pain and redness radiated to anterior left calf associated with high fever, chills, nausea and malaise: Patient was admitted for acute fever and leg lesions. CT LLE showed no fracture or abscess. Consulted ID for management and discharge abx recommendation. Continued cefazolin and clindamycin until Group A Strep was ruled out per ID. Given IV fluids for hydration and repleted electrolytes as needed. Patient was then discharged on Keflex 1 gm PO QID total 7 days ending 04-10-19 in stable condition with outpt followup. CT left LE : No evidence of acute fracture. No periosteal reaction or soft tissue mass or calcification. Discharge diagnosis : 1. Sepsis with left leg cellulitis 2. left leg cellulitis 3. hypokalemia 4. History of sarcoidosis 5. HTN (BP stable) 6. Dehydration 7. Obesity Physical exam: General appearance: Present: no acute distress, well-nourished - EENT Eyes: PERRL, EOM intact ENT: hearing intact, clear oral mucosa Ears: bilateral: normal - Neck Neck: supple, normal ROM - Respiratory Respiratory effort: normal Respiratory: bilateral: CTA - Cardiovascular Rhythm: regular Heart Sounds: Present: S1 & S2. Absent: gallop, rub Extremities: pulses intact, abnormal (+left groin enlarged LN tender, with erythema and tenderness inner thigh and anterior calf with mild tenderness) - Gastrointestinal General gastrointestinal: Present: soft, non-tender, non-distended, normal bowel sounds - Genitourinary Female genitourinary: normal - Integumentary Integumentary: clear, warm, dry - Musculoskeletal Musculoskeletal: 1, strength equal bilaterally - Neurologic Neurologic: moves all extremities - Psychiatric Psychiatric: memory intact, appropriate mood/affect, intact judgment & insight Disposition: - TO HOME OR SELFCARE Time spent for discharge: 34 minutes Core Measure Documentation - Palliative Care Palliative Care/ Comfort Measures: Not Applicable - Core Measures Any of the following diagnoses?: none Exam - Constitutional Vitals: Temp Pulse Resp BP Pulse Ox 99.6 F 88 18 133/82 96 04/06/19 05:28 04/06/19 05:28 04/06/19 05:28 04/06/19 05:28 04/06/19 05:28 Plan Activity: advance as tolerated Weight Bearing Status: Weight Bear as Tolerated Diet: low fat, low salt Follow up with: RUPERTO KASPER MD [Primary Care Provider] - 3-5 Days MIK MORGAN MD [Staff Physician] - 7 Days Prescriptions: Potassium Chloride [K-Dur] 20 meq PO BID #8 tab cephALEXin [Keflex] 1,000 mg PO Q6HR 5 Days #40 capsule oxyCODONE /ACETAMINOPHEN [Percocet 5/325 mg] 1 tab PO Q6H PRN #10 tablet PRN Reason: Pain, Moderate (4-6)
[2019-04-06 11:38] LABS: BUN/Creatinine Ratio 5; Blood Urea Nitrogen 3 mg/dL (7-17); Calcium 7.6 mg/dL (8.4-10.2); Hemolysis Index 1
--- NOTE | 2019-04-06 17:44 | XRay Report ---
PROCEDURE: XR ABDOMEN 1V AP TECHNIQUE: Supine views of the abdomen HISTORY: abdominal pain COMPARISONS: No priors FINDINGS: There is a nonspecific bowel gas pattern. No evidence of bowel obstruction. No dilated segments of bowel. Pelvic phleboliths incidentally noted. IMPRESSION: Nonspecific bowel gas pattern with no evidence of bowel obstruction.. This document is electronically signed by Naresh Lowery MD., Apr 06 2019 05:42:25 PM ET
[2019-04-06 18:29] VITALS: BP 125/71
== END 2019-04-06 20:25 | disposition home or self-care (01) | DRG 872 ==
LOC: ED 01:36 → 3A 05:19
PROVIDERS: ADMIT Internal Medicine; ATTEND Internal Medicine
DX: A41.9 Sepsis, unspecified organism (principal); L03.116 Cellulitis of left lower limb; R65.20 Severe sepsis without septic shock; I10 Essential (primary) hypertension; D86.9 Sarcoidosis, unspecified; E86.0 Dehydration; E83.42 Hypomagnesemia; E66.9 Obesity, unspecified; Z68.36 Body mass index [BMI] 36.0-36.9, adult; Z98.51 Tubal ligation status
CPT/HCPCS: 36415; 71045; 74018; 80048; 80053; 81001; 82140; 82550; 82805; 83735; 84702; 85025; 85027; 85610; 87040; 87086; 87116; 87430; 87641; 93005; 93010; G0378; J0690; J1650; J2270; J2543; J3010; J3370; J3475; J7030; J7040; Q9967

== ENCOUNTER 2020-04-04 16:16 | Emergency (ER) | payer SELFPAY ==
[2020-04-04 19:02] VITALS: BP 134/61
--- NOTE | 2020-04-04 19:29 | XRay Report ---
Right knee 3 views INDICATION: Right knee pain following injury IMPRESSION: No fracture or subluxation of the right knee is identified. No knee effusion. Signer Name: Fahad Gifford MD Signed: 04/04/2020 7:25 PM Workstation Name: [id number]
--- NOTE | 2020-04-04 19:30 | XRay Report ---
PA chest with rib series 3 views INDICATION: Chest pain. Right chest pain IMPRESSION: No displaced rib fracture is identified. Slight increased pulmonary vascular prominence/c ongestion noted. Signer Name: Fahad Gifford MD Signed: 04/04/2020 7:26 PM Workstation Name: [id number]
[2020-04-04] MEDS ORDERED: IBUPROFEN 800 MG TAB PO ONE (19:58)
--- NOTE | 2020-04-04 20:10 | Emergency Department Report ---
ED Fall HPI - General Chief Complaint: Fall Stated Complaint: FALL LAST WEEK/RT SIDE HURTING Time Seen by Provider: 04/04/20 18:04 Source: patient Mode of arrival: Ambulatory - History of Present Illness Initial Comments: 41-year-old F [place] female with emerge department complaining of a slip and fall in the shower about 1 week ago landing on her right side resulting in comp lete pain to the right side which is dull and throbbing in nature and worse with range of motion and palpation Complaint: fall -: Sudden When Fall Occurred: unsure Fall Witnessed: no Loss of Consciousness: none Prolonged Down Time?: no Symptoms Prior to Fall: none Severity: mild Quality: dull Associated Symptoms: denies: neck pain, numbness, shortness of breath, abdominal pain, hematuria, lightheaded, vertigo, confusion - Related Data Home Medications Medication Instructions Recorded Confirmed Last Taken Montelukast 10 mg PO DAILY 04/04/19 04/04/19 Unknown hydroCHLOROthiazide 25 mg PO DAILY 04/04/19 04/04/19 Unknown Previous Rx's Medication Instructions Recorded Last Taken Type Potassium Chloride [K-Dur] 20 meq PO BID #8 tab 04/06/19 Unknown Rx cephALEXin [Keflex] 1,000 mg PO Q6HR 5 Days #40 capsule 04/06/19 Unknown Rx oxyCODONE /ACETAMINOPHEN [Percocet 1 tab PO Q6H PRN #10 tablet 04/06/19 Unknown Rx 5/325 mg] Ketorolac [Toradol] 10 mg PO Q6H PRN #14 tablet 04/04/20 Unknown Rx methOCARBAMOL [Robaxin TAB] 500 mg PO Q6H #20 tablet 04/04/20 Unknown Rx Allergies Allergy/AdvReac Type Severity Reaction Status Date / Time No Known Allergies Allergy Verified 06/20/15 14:21 ED Review of Systems ROS: Stated complaint: FALL LAST WEEK/RT SIDE HURTING Other details as noted in HPI Comment: All other systems reviewed and negative ED Past Medical Hx - Past Medical History Previous Medical History?: Yes Hx Hypertension: Yes Hx Congestive Heart Failure: No Hx Diabetes: No Hx Asthma: No - Surgical History Past Surgical History?: Yes Additional Surgical History: tubal ligation - Social History Smoking Status: Never Smoker Substance Use Type: None - Medications Home Medications: Home Medications Medication Instructions Recorded Confirmed Last Taken Type Montelukast 10 mg PO DAILY 04/04/19 04/04/19 Unknown History hydroCHLOROthiazide 25 mg PO DAILY 04/04/19 04/04/19 Unknown History Potassium Chloride [K-Dur] 20 meq PO BID #8 tab 04/06/19 Unknown Rx cephALEXin [Keflex] 1,000 mg PO Q6HR 5 Days #40 capsule 04/06/19 Unknown Rx oxyCODONE /ACETAMINOPHEN [Percocet 1 tab PO Q6H PRN #10 tablet 04/06/19 Unknown Rx 5/325 mg] Ketorolac [Toradol] 10 mg PO Q6H PRN #14 tablet 04/04/20 Unknown Rx methOCARBAMOL [Robaxin TAB] 500 mg PO Q6H #20 tablet 04/04/20 Unknown Rx ED Physical Exam - General Limitations: No Limitations General appearance: alert, in no apparent distress - Head Head exam: Present: atraumatic, normocephalic - Eye Eye exam: Present: normal appearance, PERRL, EOMI Pupils: Present: normal accommodation - ENT ENT exam: Present: normal exam, normal orophraynx, mucous membranes moist - Neck Neck exam: Present: normal inspection - Respiratory Respiratory exam: Present: normal lung sounds bilaterally, chest wall tenderness (To the right rib flank with palpation no crepitus no step-off no lifts heaves or thrills). Absent: respiratory distress - Cardiovascular Cardiovascular Exam: Present: regular rate, normal rhythm. Absent: systolic murmur, diastolic murmur, rubs, gallop - GI/Abdominal GI/Abdominal exam: Present: soft, normal bowel sounds - Extremities Exam Extremities exam: Present: normal inspection, normal capillary refill - Back Exam Back exam: Present: normal inspection - Neurological Exam Neurological exam: Present: alert, oriented X3 - Psychiatric Psychiatric exam: Present: normal affect, normal mood - Skin Skin exam: Present: warm, dry, intact, normal color. Absent: rash ED Course Vital Signs 04/04/20 04/04/20 16:27 19:00 Temperature 98.1 F 98.0 F Pulse Rate 97 H 82 Respiratory 16 18 Rate Blood Pressure 152/81 134/61 O2 Sat by Pulse 100 100 Oximetry Critical care attestation.: If time is entered above; I have spent that time in minutes in the direct care of this critically ill patient, excluding procedure time. ED Disposition Disposition: - TO HOME OR SELFCARE Condition: Stable Instructions: Musculoskeletal Pain (ED), Fall Prevention (ED) Prescriptions: methOCARBAMOL [Robaxin TAB] 500 mg PO Q6H #20 tablet Ketorolac [Toradol] 10 mg PO Q6H PRN #14 tablet PRN Reason: Pain Referrals: ANA DEVI MD [Primary Care Provider] - 3-5 Days
== END 2020-04-04 20:17 | disposition home or self-care (01) ==
LOC: ED 16:16
DX: R07.81 Pleurodynia (principal); M25.561 Pain in right knee; R07.89 Other chest pain; I10 Essential (primary) hypertension; Z98.51 Tubal ligation status; Z79.899 Other long term (current) drug therapy; W18.2XXA Fall in (into) shower or empty bathtub, initial encounter; Y93.89 Activity, other specified; Y92.89 Other specified places as the place of occurrence of the external cause; Y99.8 Other external cause status
CPT/HCPCS: 99283

== ENCOUNTER 2020-10-31 20:51 | Emergency (ER) | payer SELFPAY ==
[2020-10-31] MEDS ORDERED: ASPIRIN 325 MG TAB PO ONE (21:11)
[2020-10-31 21:25] LABS: Basophils # (Auto) 0.1 K/mm3 (0.0-0.1); Basophils % (Auto) 1.3 % (0.0-1.8); Eosinophils # (Auto) 0.2 K/mm3 (0.0-0.4); Eosinophils % (Auto) 2.5 % (0.0-4.3); Hematocrit 27.4 % (30.3-42.9); Hemoglobin 8.3 gm/dl (10.1-14.3); Lymphocytes # (Auto) 2.7 K/mm3 (1.2-5.4); Mean Corpuscular HGB Conc 30 % (30-34); Mean Corpuscular Volume 73 fl (79-97); Monocytes # (Auto) 0.9 K/mm3 (0.0-0.8); Monocytes % (Auto) 11.8 % (0.0-7.3); Platelet Count 470 K/mm3 (140-440); Red Blood Count 3.74 M/mm3 (3.65-5.03); Red Cell Distribution Width 18.9 % (13.2-15.2)
--- NOTE | 2020-10-31 21:31 | XRay Report ---
CHEST 2 VIEWS INDICATION / CLINICAL INFORMATION: Chest Pain. COMPARISON: 04/04/2020. FINDINGS: SUPPORT DEVICES: None. HEART / MEDIASTINUM: No significant abnormality. LUNGS / PLEURA: No significant pulmonary or pleural abnormality. No pneumothorax. ADDITIONAL FINDINGS: No significant additional findings. IMPRESSION: No acute cardiopulmonary abnormality. Signer Name: Maxwell Rivas MD Signed: 10/31/2020 9:26 PM Workstation Name: [id number]
[2020-10-31 21:45] LABS: Blood Urea Nitrogen 7 mg/dL (7-17); Calcium 9.5 mg/dL (8.4-10.2); Hemolysis Index 5
[2020-10-31 21:48] LABS: BUN/Creatinine Ratio 12
--- NOTE | 2020-11-01 01:33 | Emergency Department Report ---
ED Chest Pain HPI - General Chief Complaint: Chest Pain Stated Complaint: CHEST HURTING PUI?: No Source: patient Mode of arrival: Ambulatory Limitations: No Limitations - History of Present Illness Initial Comments: Patient is a 49-year-old -[place] female with a history of hypertension and asthma who presents to the ED with complaint of acute onset persistent pleuritic right-sided chest pain with persistent dry cough and intermittent wheezing for the last 1 week, worse in the last 2 days. Patient states that the chest pain is intermittent and that it has been persistent since 1 week ago. Patient denies fall, traumatic injury, headache, dizziness, syncope, shortness of breath, nasal and sinus congestion, nausea and vomiting, change in vision, headache, sore throat, abdominal pain, neck pain diarrhea or diaphoresis. MD Complaint: chest pain (right sided chest pain), other (dry cough with wheezing) -: Sudden, week(s) (1) Onset: awoke with symptoms Pain Location: right chest Pain Radiation: none Severity: moderate Severity scale (0 -10): 4 Quality: aching, sharp Consistency: intermittent Improves With: rest Worsens With: nothing, palpation, other (cough) Context: recent illness (URI) re: denies: nausea, vomting, diaphoresis, dyspnea, sense of impending doom Other Symptoms: cough. denies: fever, syncope, rash, leg swelling, palpitations, burping, other Treatments Prior to Arrival: none Aspirin use within the Past 7 Days: (0) No - Related Data On Oral Contraceptives: No Home Medications Medication Instructions Recorded Confirmed Last Taken Montelukast 10 mg PO DAILY 04/04/19 04/04/19 Unknown hydroCHLOROthiazide 25 mg PO DAILY 04/04/19 04/04/19 Unknown Previous Rx's Medication Instructions Recorded Last Taken Type Potassium Chloride [K-Dur] 20 meq PO BID #8 tab 04/06/19 Unknown Rx cephALEXin [Keflex] 1,000 mg PO Q6HR 5 Days #40 capsule 04/06/19 Unknown Rx oxyCODONE /ACETAMINOPHEN [Percocet 1 tab PO Q6H PRN #10 tablet 04/06/19 Unknown Rx 5/325 mg] Ketorolac [Toradol] 10 mg PO Q6H PRN #14 tablet 04/04/20 Unknown Rx methOCARBAMOL [Robaxin TAB] 500 mg PO Q6H #20 tablet 04/04/20 Unknown Rx Benzonatate [Tessalon Perles] 100 mg PO Q8HR #30 capsule 11/01/20 Unknown Rx Ibuprofen [Motrin] 800 mg PO Q8HR PRN #24 tablet 11/01/20 Unknown Rx Prednisone [predniSONE 10 mg 10 mg PO .TAPER #21 tab.ds.pk 11/01/20 Unknown Rx (6-Day Pack, 21 Tabs)] Allergies Allergy/AdvReac Type Severity Reaction Status Date / Time No Known Allergies Allergy Verified 06/20/15 14:21 Heart Score - HEART Score History: Slightly suspicious EKG: Normal Age: 45-65 Risk factors: 1-2 risk factors Troponin: < normal limit HEART Score: 2 - Critical Actions Critical Actions: 0-3 pts:0.9-1.7%risk of adverse cardiac event.Candidate for discharge ED Review of Systems ROS: Stated complaint: CHEST HURTING Other details as noted in HPI Constitutional: denies: chills, fever Eyes: denies: eye pain, eye discharge, vision change ENT: denies: ear pain, throat pain Respiratory: cough. denies: shortness of breath, SOB with exertion, wheezing Cardiovascular: chest pain (right-sided chest wall pain). denies: palpitations Endocrine: no symptoms reported Gastrointestinal: denies: abdominal pain, nausea, vomiting, diarrhea Genitourinary: denies: urgency, dysuria, discharge Musculoskeletal: denies: back pain, joint swelling, arthralgia Skin: denies: rash, lesions Neurological: denies: headache, weakness, paresthesias Psychiatric: denies: anxiety, depression Hematological/Lymphatic: denies: easy bleeding, easy bruising ED Past Medical Hx - Past Medical History Previous Medical History?: Yes Hx Hypertension: Yes Hx Congestive Heart Failure: No Hx Asthma: Yes Hx Dementia: No - Surgical History Additional Surgical History: tubal ligation - Social History Smoking Status: Never Smoker Substance Use Type: None - Medications Home Medications: Home Medications Medication Instructions Recorded Confirmed Last Taken Type Montelukast 10 mg PO DAILY 04/04/19 04/04/19 Unknown History hydroCHLOROthiazide 25 mg PO DAILY 04/04/19 04/04/19 Unknown History Potassium Chloride [K-Dur] 20 meq PO BID #8 tab 04/06/19 Unknown Rx cephALEXin [Keflex] 1,000 mg PO Q6HR 5 Days #40 capsule 04/06/19 Unknown Rx oxyCODONE /ACETAMINOPHEN [Percocet 1 tab PO Q6H PRN #10 tablet 04/06/19 Unknown Rx 5/325 mg] Ketorolac [Toradol] 10 mg PO Q6H PRN #14 tablet 04/04/20 Unknown Rx methOCARBAMOL [Robaxin TAB] 500 mg PO Q6H #20 tablet 04/04/20 Unknown Rx Benzonatate [Tessalon Perles] 100 mg PO Q8HR #30 capsule 11/01/20 Unknown Rx Ibuprofen [Motrin] 800 mg PO Q8HR PRN #24 tablet 11/01/20 Unknown Rx Prednisone [predniSONE 10 mg 10 mg PO .TAPER #21 tab.ds.pk 11/01/20 Unknown Rx (6-Day Pack, 21 Tabs)] ED Physical Exam - General Limitations: No Limitations General appearance: alert, in no apparent distress - Head Head exam: Present: atraumatic, normocephalic, normal inspection - Eye Eye exam: Present: normal appearance, PERRL, EOMI Pupils: Present: normal accommodation - ENT ENT exam: Present: normal exam, normal orophraynx, mucous membranes moist, TM's normal bilaterally, normal external ear exam - Neck Neck exam: Present: normal inspection, full ROM. Absent: tenderness, lymphadenopathy - Respiratory Respiratory exam: Present: normal lung sounds bilaterally, chest wall tenderness (Palpable reproducible right chest wall tenderness). Absent: respiratory distress, wheezes, rales, rhonchi, accessory muscle use, decreased breath sounds, prolonged expiratory - Cardiovascular Cardiovascular Exam: Present: normal rhythm, tachycardia, normal heart sounds. Absent: systolic murmur, diastolic murmur, rubs, gallop - GI/Abdominal GI/Abdominal exam: Present: soft, normal bowel sounds. Absent: tenderness, guarding, rebound, hyperactive bowel sounds, hypoactive bowel sounds, organomegaly - Extremities Exam Extremities exam: Present: normal inspection, full ROM, normal capillary refill - Back Exam Back exam: Present: normal inspection, full ROM. Absent: tenderness, CVA tenderness (R), CVA tenderness (L), muscle spasm, paraspinal tenderness, vertebral tenderness - Neurological Exam Neurological exam: Present: alert, oriented X3, CN II-XII intact, normal gait, reflexes normal - Psychiatric Psychiatric exam: Present: normal affect, normal mood - Skin Skin exam: Present: warm, dry, intact, normal color. Absent: rash ED Course Vital Signs 10/31/20 21:09 Temperature 98.7 F Pulse Rate 102 H Respiratory 20 Rate Blood Pressure 190/89 O2 Sat by Pulse 100 Oximetry JUNIOR score - Junior Score Age > 65: (0) No Aspirin use within the Past 7 Days: (0) No 3 or more CAD Risk Factors: (0) No 2 or more Angina events in past 24 hrs: (0) No Known CAD with more than 50% Stenosis: (0) No Elevated Cardiac Markers: (0) No ST Deviation Greater than 0.5mm: (0) No JUNIOR Score: 0 ED Medical Decision Making - Lab Data Result diagrams: 10/31/20 21:14 10/31/20 21:14 - EKG Data EKG shows normal: sinus rhythm Rate: normal, tachycardia - EKG Data 11/01/20 01:52 EKG shows sinus pericardial with a ventricular rate of [address] or T wave abnormalities. - Radiology Data Radiology results: report reviewed, image reviewed Findings [address] [address] XRay Report Signed Patient: DAVID HAMILTON MR#: [id number] : 1970 Acct:[id number] Age/Sex: 49 / F ADM Date: 10/31/20 Loc: ED Attending Dr: Ordering Physician: ROX YUSUF MD Date of Service: 10/31/20 Procedure(s): XR chest routine 2V Accession Number(s): [id number] cc: ED MD MADELIN Fluoro Time In Minutes: CHEST 2 VIEWS INDICATION / CLINICAL INFORMATION: Chest Pain. COMPARISON: 04/04/2020. FINDINGS: SUPPORT DEVICES: None. HEART / MEDIASTINUM: No significant abnormality. LUNGS / PLEURA: No significant pulmonary or pleural abnormality. No pneumothorax. ADDITIONAL FINDINGS: No significant additional findings. IMPRESSION: No acute cardiopulmonary abnormality. Signer Name: Willie Rivas MD Signed: 10/31/2020 9:26 PM Workstation Name: [id number] Transcribed By: SS Dictated By: WILLIE RIVAS Electronically Authenticated By: WILLIE RIVAS Signed Date/Time: 10/31/202125 DD/ 2125 TD/TT: - Medical Decision Making This is a 49-year-old -[place] female with a history of hypertension and asthma who presents to the ED with complaint of acute onset persistent pleuritic right-sided chest pain with persistent dry cough and intermittent wheezing for the last 1 week, worse in the last 2 days. Patient states that the chest pain is intermittent and that it has been persistent since 1 week ago. In the ED, patient is alert and oriented x3 and is not in distress. Patient is however tachycardic in triage. Chest x-ray shows no acute cardiopulmonary abnormalities or pneumonitis. Patient was treated with aspirin and EKG shows sinus tachycardia with a ventricular rate of 103 bpm. Lab test results were reviewed and are all nonactionable including initial and 3-hour troponin levels. On reevaluation, patient's pain is well controlled with medications. The vital signs were stable with a normal heart rate. Patient heart score is 2 but the patient is PERC negative. Patient was discharged home on medications for cough and for pain and was advised to follow-up with her primary care physician in 3 to 5 days for reevaluation or return to the ED immediately if symptoms get worse. Critical care attestation.: If time is entered above; I have spent that time in minutes in the direct care of this critically ill patient, excluding procedure time. ED Disposition Clinical Impression: Acute bronchitis with asthma, Right-sided chest pain, Acute costochondritis Disposition: DC-01 TO HOME OR SELFCARE Is pt being admited?: No Does the pt Need Aspirin: No Condition: Stable Instructions: Acute Bronchitis (ED), Chest Pain (ED), Nonspecific Chest Pain, Adult, [id number], Cough, Adult, [id number], Acute Bronchitis, Adult, [id number], Asthma, Adult, [id number] Additional Instructions: All lab test results and x-rays of your chest showed no acute abnormalities, specifically no acute cardiopulmonary abnormalities. Therefore take medications with food, drink plenty of fluids and follow-up with your primary care physician in 3 to 5 days for reevaluation. Return to the ED immediately if symptoms get worse. Prescriptions: Ibuprofen [Motrin] 800 mg PO Q8HR PRN #24 tablet PRN Reason: Pain , Severe (7-10) Prednisone [predniSONE 10 mg (6-Day Pack, 21 Tabs)] 10 mg PO .TAPER #21 tab.ds.pk Benzonatate [Tessalon Perles] 100 mg PO Q8HR #30 capsule Referrals: [facility] [Provider Group] - 3-5 Days Time of Disposition: 01:37 Print Language: GREEK
[2020-11-01 02:02] VITALS: BP 137/86
== END 2020-11-01 02:40 | disposition home or self-care (01) ==
LOC: ED 20:51
DX: M94.0 Chondrocostal junction syndrome [Tietze] (principal); J20.9 Acute bronchitis, unspecified; R07.89 Other chest pain; I10 Essential (primary) hypertension; J45.909 Unspecified asthma, uncomplicated; Z79.899 Other long term (current) drug therapy; Z98.51 Tubal ligation status
CPT/HCPCS: 36415; 71046; 80048; 84484; 85025; 93005

== ENCOUNTER 2021-04-24 11:37 | Emergency (ER) | payer SELFPAY ==
[2021-04-24] MEDS ORDERED: IPRATROPIUM/ALBUTEROL SULFATE 3 ML AMPUL.NEB IH ONE (13:45)
--- NOTE | 2021-04-24 13:53 | Emergency Department Report ---
ED Female HPI - General Chief complaint: Vaginal Bleeding Stated complaint: VAGINAL BLEEDING, SEEING SPOTS Time Seen by Provider: 04/24/21 12:51 Source: patient Mode of arrival: Ambulatory Limitations: No Limitations - History of Present Illness Initial comments: 50 year old female with past medical hx of HTN, Asthma, anemia secondary to uterine fibroids and allergies presents to the ER today with complaints of abnormal vaginal bleeding. She states that the bleeding started about 3 weeks ago. patient states that she had a regular period the beginning of March when she started bleeding again about a week later. She states that the bleeding is h eavier than her normal menstrual cycle with associated clots. She states she has been using overnight pads and has been going through 1 pad an hour. She reports associated lower abdominal cramping, dizziness and lightheadedness. She also complains of shortness of breath which started this morning. She states that she did a couple puffs of her inhaler without much relief. She denies any wheezing, cough, chest pain or URI symptoms, fever or chills. She also denies any UTI symptoms, or any abnormal vaginal discharge. She status post tubal ligation. She states that she never had a blood transfusion in the past. She states that she has spoken to her [facility]ALTH EQUIPMENT SERVIC[facility] about these fibroids but she is currently waiting on her insurance to make a decision as to what to do about the fibroids. Complaint: vaginal bleeding -: week(s) (3) - Related Data Home Medications Medication Instructions Recorded Confirmed Last Taken Montelukast 10 mg PO DAILY 04/04/19 04/04/19 Unknown hydroCHLOROthiazide 25 mg PO DAILY 04/04/19 04/04/19 Unknown Previous Rx's Medication Instructions Recorded Last Taken Type cephALEXin [Keflex] 1,000 mg PO Q6HR 5 Days #40 capsule 04/06/19 Unknown Rx oxyCODONE /ACETAMINOPHEN [Percocet 1 tab PO Q6H PRN #10 tablet 04/06/19 Unknown Rx 5/325 mg] Ketorolac [Toradol] 10 mg PO Q6H PRN #14 tablet 04/04/20 Unknown Rx methOCARBAMOL [Robaxin TAB] 500 mg PO Q6H #20 tablet 04/04/20 Unknown Rx Benzonatate [Tessalon Perles] 100 mg PO Q8HR #30 capsule 11/01/20 Unknown Rx Prednisone [predniSONE 10 mg 10 mg PO .TAPER #21 tab.ds.pk 11/01/20 Unknown Rx (6-Day Pack, 21 Tabs)] Albuterol Mdi (or & Nicu Only) 2 puff IH QID PRN #8.5 gram 04/24/21 Unknown Rx [ProAir HFA Inhaler] HYDROcodone/APAP 5-325 [[place] 1 each PO Q4HR PRN #12 tablet 04/24/21 Unknown Rx 5/325] Ibuprofen [Motrin 800 MG tab] 800 mg PO Q8HR PRN #24 tablet 04/24/21 Unknown Rx Potassium Chloride [K-Dur] 20 meq PO BID #8 tab 04/24/21 Unknown Rx medroxyPROGESTERone ACETATE 10 mg PO DAILY #10 tablet 04/24/21 Unknown Rx [Provera] Allergies Allergy/AdvReac Type Severity Reaction Status Date / Time No Known Allergies Allergy Verified 04/24/21 12:49 ED Review of Systems ROS: Stated complaint: VAGINAL BLEEDING, SEEING SPOTS Other details as noted in HPI Comment: All other systems reviewed and negative Constitutional: denies: chills, diaphoresis, fever, malaise ENT: denies: ear pain, throat pain, dental pain, hearing loss, epistaxis, congestion Respiratory: shortness of breath. denies: cough, SOB with exertion, SOB at rest, wheezing Cardiovascular: denies: chest pain, palpitations, dyspnea on exertion, orthopnea, edema, syncope, paroxysmal nocturnal dyspnea Gastrointestinal: denies: abdominal pain, nausea, vomiting, diarrhea, constipation, hematemesis, melena, hematochezia Genitourinary: denies: urgency, dysuria, discharge Musculoskeletal: denies: back pain, joint swelling, arthralgia Skin: denies: rash, lesions, change in color, change in hair/nails, pruritus Neurological: denies: headache, weakness, numbness, paresthesias, confusion, abnormal gait, vertigo Psychiatric: denies: anxiety, depression, auditory hallucinations, visual hallucinations, homicidal thoughts, suicidal thoughts Hematological/Lymphatic: denies: easy bleeding, easy bruising, swollen glands ED Past Medical Hx - Past Medical History Hx Hypertension: Yes Hx Congestive Heart Failure: No Hx Diabetes: No Hx Asthma: Yes Hx Dementia: No - Surgical History Additional Surgical History: tubal ligation - Social History Smoking Status: Never Smoker Substance Use Type: None - Medications Home Medications: Home Medications Medication Instructions Recorded Confirmed Last Taken Type Montelukast 10 mg PO DAILY 04/04/19 04/04/19 Unknown History hydroCHLOROthiazide 25 mg PO DAILY 04/04/19 04/04/19 Unknown History cephALEXin [Keflex] 1,000 mg PO Q6HR 5 Days #40 capsule 04/06/19 Unknown Rx oxyCODONE /ACETAMINOPHEN [Percocet 1 tab PO Q6H PRN #10 tablet 04/06/19 Unknown Rx 5/325 mg] Ketorolac [Toradol] 10 mg PO Q6H PRN #14 tablet 04/04/20 Unknown Rx methOCARBAMOL [Robaxin TAB] 500 mg PO Q6H #20 tablet 04/04/20 Unknown Rx Benzonatate [Tessalon Perles] 100 mg PO Q8HR #30 capsule 11/01/20 Unknown Rx Prednisone [predniSONE 10 mg 10 mg PO .TAPER #21 tab.ds.pk 11/01/20 Unknown Rx (6-Day Pack, 21 Tabs)] Albuterol Mdi (or & Nicu Only) 2 puff IH QID PRN #8.5 gram 04/24/21 Unknown Rx [ProAir HFA Inhaler] HYDROcodone/APAP 5-325 [[place] 1 each PO Q4HR PRN #12 tablet 04/24/21 Unknown Rx 5/325] Ibuprofen [Motrin 800 MG tab] 800 mg PO Q8HR PRN #24 tablet 04/24/21 Unknown Rx Potassium Chloride [K-Dur] 20 meq PO BID #8 tab 04/24/21 Unknown Rx medroxyPROGESTERone ACETATE 10 mg PO DAILY #10 tablet 04/24/21 Unknown Rx [Provera] ED Physical Exam - General Limitations: No Limitations General appearance: alert, in no apparent distress - Head Head exam: Present: atraumatic, normocephalic, normal inspection - Eye Eye exam: Present: PERRL, EOMI, other (Pale conjunctiva) Pupils: Present: normal accommodation - ENT ENT exam: Present: normal exam, mucous membranes moist - Neck Neck exam: Present: normal inspection, full ROM - Respiratory Respiratory exam: Present: normal lung sounds bilaterally. Absent: respiratory distress - Cardiovascular Cardiovascular Exam: Present: regular rate, normal rhythm, normal heart sounds - GI/Abdominal GI/Abdominal exam: Present: soft. Absent: distended, tenderness, guarding - Neurological Exam Neurological exam: Present: alert, oriented X3, CN II-XII intact, normal gait - Psychiatric Psychiatric exam: Present: normal affect, normal mood - Skin Skin exam: Present: intact ED Course Vital Signs 04/24/21 04/24/21 04/24/21 12:46 15:24 15:31 Temperature 98.7 F Pulse Rate 107 H 112 H Respiratory 24 18 12 Rate Blood Pressure 162/72 O2 Sat by Pulse 100 99 Oximetry 04/24/21 04/24/21 04/24/21 17:04 17:15 17:17 Temperature Pulse Rate 112 H Respiratory 18 18 Rate Blood Pressure 147/85 134/83 O2 Sat by Pulse 93 100 Oximetry 04/24/21 04/24/21 04/24/21 18:01 18:09 18:39 Temperature Pulse Rate 101 H Respiratory 18 18 18 Rate Blood Pressure 127/74 O2 Sat by Pulse Oximetry 04/24/21 19:01 Temperature Pulse Rate 92 H Respiratory 20 Rate Blood Pressure 127/74 O2 Sat by Pulse 97 Oximetry ED Medical Decision Making - Lab Data Result diagrams: 04/24/21 17:57 04/24/21 14:17 - EKG Data Rate: tachycardia (114) - EKG Data Interpretation: no acute changes - Radiology Data Radiology results: report reviewed Patient: DAVID HAMILTON MR#: [id number] : 1970 Acct:[id number] Age/Sex: 50 / F ADM Date: 04/24/21 Loc: ED Attending Dr: Ordering Physician: EMMA FORD Date of Service: 04/24/21 Procedure(s): XR chest routine 2V Accession Number(s): [id number] cc: EMMA FORD Fluoro Time In Minutes: CHEST 2 VIEWS INDICATION / CLINICAL INFORMATION: shortness of breath. COMPARISON: 10/31/2020 FINDINGS: SUPPORT DEVICES: None. HEART / MEDIASTINUM: No significant abnormality. LUNGS / PLEURA: No significant pulmonary or pleural abnormality. No pneumothorax. ADDITIONAL FINDINGS: No significant additional findings. IMPRESSION: No significant abnormality or interval change from 10/31/2020 Signer Name: Uvaldo Rivas MD FACR Signed: 04/24/2021 2:11 PM Workstation Name: [id number] Transcribed By: MS Dictated By: Uvaldo Rivas MD Electronically Authenticated By: Uvaldo Rivas MD Signed Date/Time: 04/24/21 141 DD/ 141 TD/TT: Patient: DAVID HAMILTON MR#: [id number] : 1970 Acct:[id number] Age/Sex: 50 / F ADM Date: 04/24/21 Loc: ED Attending Dr: Ordering Physician: BROCK MORRIS Date of Service: 04/24/21 Procedure(s): US transvaginal Accession Number(s): [id number] cc: BROCK MORRIS US transvaginal, US pelvic complete INDICATION / CLINICAL INFORMATION: Heavy vaginal bleeding. TECHNIQUE: Transabdominal and Transvaginal. Duplex Color Doppler used: Yes. COMPARISON: None available FINDINGS: UTERUS: Enlarged heterogeneous uterus measuring 15.8 x 9.2 x 1.3 cm. -Endometrial stripe measures 1.7 cm. - Mass lesions: There are at least 3 uterine lesions identified with the largest being subserosal and measuring up to about 5.7 cm in the right posterior fundus. There are 2 anterior fibroids measure approximately 5.5 and 3.1 cm. RIGHT ADNEXA: No significant ovarian cyst or mass. Normal color Doppler blood flow. LEFT ADNEXA: No significant ovarian cyst or mass. Normal color Doppler blood flow. URINARY BLADDER: No significant abnormality. FREE FLUID: None. ADDITIONAL FINDINGS: None. IMPRESSION: 1. There are a few uterine lesions most consistent with fibroids. 2. Endometrial stripe is upper limits of normal approximately 17 mm. Signer Name: Lex Singer MD Signed: 04/24/2021 5:03 PM Workstation Name: [id number] Transcribed By: Dictated By: Lex Singer MD Electronically Authenticated By: Lex Singer MD Signed Date/Time: 04/24/21 1703 DD/ 165 TD/TT: - Medical Decision Making Labs showed CBC with WBC of 12, hemoglobin of 7.5 and hematocrit of 23.5 and CMP showed a potassium of 2.8 Orthostatic vitals reviewed --her blood pressures were fine, but her heart rate noted to jump from 104-134 when she went from a lying position to standing position. Discussed case with Dr. Avni Nathan, reviewed labs as well as vital signs together. Recommend repeating the hemoglobin, and after which giving patient a liter of fluids. Patient requesting something for pain and so she was given morphine. Ultrasound shows intrauterine fibroids but otherwise nothing else acute. Repeat hemoglobin and hematocrit showed a hemoglobin of 7 and a hematocrit of 21.7. Discussed these results with Dr Boswell. He recommend trying outpatient treatment by placing patient on provera to see if that will stop the bleeding and having patient take iron supplements and outpatient follow up with OB. At this time she does not meet criteria for admission. Patient currently resting comfortably. She does not appear to be in any pain or respiratory distress. She reports some improvement of her SOB after nebs. Her repeat vital signs are stable. All labs and imaging were discussed with patient. Informed patient of plan to have her try Provera at home to see if that will help stop the bleeding while she continues taking her iron supplements twice a day. Patient agreed with this plan but she was also given warnings that if her bleeding is getting worse despite the Provera with worsening dizziness, shortness of breath, and start having syncopal episode that she needs to return to the ER immediately. Patient expressed understanding of instructions and agree with plan. Patient stable at time of discharge. Critical care attestation.: If time is entered above; I have spent that time in minutes in the direct care of this critically ill patient, excluding procedure time. ED Disposition Clinical Impression: Vaginal bleeding, Anemia, secondary, Uterine fibroid, Asthma, Hypokalemia Disposition: DC-01 TO HOME OR SELFCARE Is pt being admited?: No Does the pt Need Aspirin: No Condition: Stable Instructions: Asthma, Adult, Preventing Iron Deficiency Anemia, Adult, Uterine Fibroids, [id number], Potassium Content of Foods, Abnormal Uterine Bleeding, [id number], Asthma (ED) Additional Instructions: I recommend that you continue taking your iron supplements twice a day. Take the Provera daily as prescribed. Recommend rest and lots of fluids. Continue using your albuterol MDI every 4 hours to help with shortness of breath. Potassium supplement as prescribed. I recommend that you eat foods rich in potassium to help continue bring up your potassium. it is important that you follow-up with HEALTH EQUIPMENT SERVICER next week for discussion about treatments for your uterine fibroids. Return to the ER if your bleeding worsens despite being on the Provera, with worsening dizziness, lightheadedness, shortness of breath and syncope. Prescriptions: Potassium Chloride [K-Dur] 20 meq PO BID #8 tab Ibuprofen [Motrin 800 MG tab] 800 mg PO Q8HR PRN #24 tablet PRN Reason: Pain , Severe (7-10) HYDROcodone/APAP 5-325 [[place] 5/325] 1 each PO Q4HR PRN #12 tablet PRN Reason: Pain Albuterol Mdi (or & Nicu Only) [ProAir HFA Inhaler] 2 puff IH QID PRN #8.5 gram PRN Reason: Shortness Of Breath medroxyPROGESTERone ACETATE [Provera] 10 mg PO DAILY #10 tablet Referrals: EDER DEVI MD [Primary Care Provider] - 3-5 Days [facility] [Provider Group] - 3-5 Days [facility] [Provider Group] - 3-5 Days Forms: Work/School Release Form(ED) Time of Disposition: 20:12
--- NOTE | 2021-04-24 14:15 | XRay Report ---
CHEST 2 VIEWS INDICATION / CLINICAL INFORMATION: shortness of breath. COMPARISON: 10/31/2020 FINDINGS: SUPPORT DEVICES: None. HEART / MEDIASTINUM: No significant abnormality. LUNGS / PLEURA: No significant pulmonary or pleural abnormality. No pneumothorax. ADDITIONAL FINDINGS: No significant additional findings. IMPRESSION: No significant abnormality or interval change from 10/31/2020 Signer Name: Uvaldo Rivas MD FACR Signed: 04/24/2021 2:11 PM Workstation Name: [email or web address]
[2021-04-24 14:46] LABS: Basophils # (Auto) 0.1 K/mm3 (0.0-0.1); Basophils % (Auto) 0.7 % (0.0-1.8); Eosinophils # (Auto) 0.3 K/mm3 (0.0-0.4); Eosinophils % (Auto) 2.5 % (0.0-4.3); Hematocrit 23.5 % (30.3-42.9); Hemoglobin 7.5 gm/dl (10.1-14.3); Lymphocytes # (Auto) 2.7 K/mm3 (1.2-5.4); Lymphocytes % (Auto) 22.7 % (13.4-35.0); Mean Corpuscular HGB Conc 32 % (30-34); Mean Corpuscular Volume 82 fl (79-97); Monocytes # (Auto) 0.7 K/mm3 (0.0-0.8); Monocytes % (Auto) 5.8 % (0.0-7.3); Platelet Count 291 K/mm3 (140-440); Red Blood Count 2.86 M/mm3 (3.65-5.03); Red Cell Distribution Width 18.4 % (13.2-15.2)
--- NOTE | 2021-04-24 14:56 | Electrocardiograph Report ---
[facility] Test Date: 2021-04-24 Test Time: 14:04:58 Pat Name: DAVID HAMILTON Department: Room: Gender: F Wheelchair Van Driver: : 1970 Requested By: BROCK MORRIS Order Number: [id number] Reading MD: Ayaka Benavides Measurements Intervals [place] Rate: 114 P: -4 [place]: 132 QRS: 24 QRSD: 67 T: -3 QT: 326 QTc: 450 Interpretive Statements Sinus tachycardia Probable left atrial enlargement Borderline lateral ST depression, consider ischemia No previous ECG available for comparison Electronically Signed On 04-24-2021 14:55:43 EDT by Ayaka Benavides
[2021-04-24 14:57] LABS: Alanine Aminotransferase 13 units/L (7-56); Albumin 3.8 g/dL (3.9-5); Blood Urea Nitrogen 8 mg/dL (7-17); Calcium 8.2 mg/dL (8.4-10.2); Hemolysis Index 2; INR 1.03 (0.87-1.13); Partial Thromboplastin Time 25.2 Sec. (24.2-36.6)
[2021-04-24 14:58] LABS: BUN/Creatinine Ratio 13
[2021-04-24] MEDS ORDERED: POTASSIUM CHLORIDE ER 20 MEQ TAB PO ONE (15:09)
[2021-04-24 15:51] LABS: Bilirubin,Urine NEG (Negative); Blood,Urine LG (Negative); Color,Urine Red (Yellow); Urobilinogen,Urine < 2.0 mg/dL (<2.0)
[2021-04-24 15:56] LABS: RBC,Urine > 182.0 /HPF (0.0-6.0)
--- NOTE | 2021-04-24 17:08 | Ultrasound Report ---
US transvaginal, US pelvic complete INDICATION / CLINICAL INFORMATION: Heavy vaginal bleeding. TECHNIQUE: Transabdominal and Transvaginal. Duplex Color Doppler used: Yes. COMPARISON: None available FINDINGS: UTERUS: Enlarged heterogeneous uterus measuring 15.8 x 9.2 x 1.3 cm. -Endometrial stripe measures 1.7 cm. - Mass lesions: There are at least 3 uterine lesions identified with the largest being subserosal and measuring up to about 5.7 cm in the right posterior fundus. There are 2 anterior fibroids measure ap proximately 5.5 and 3.1 cm. RIGHT ADNEXA: No significant ovarian cyst or mass. Normal color Doppler blood flow. LEFT ADNEXA: No significant ovarian cyst or mass. Normal color Doppler blood flow. URINARY BLADDER: No significant abnormality. FREE FLUID: None. ADDITIONAL FINDINGS: None. IMPRESSION: 1. There are a few uterine lesions most consistent with fibroids. 2. Endometrial stripe is upper limits of normal approximately 17 mm. Signer Name: Lex Singer MD Signed: 04/24/2021 5:03 PM Workstation Name: [id number]
[2021-04-24] MEDS ORDERED: MORPHINE 2 MG/1 ML INJ IV ONE (17:44)
[2021-04-24] MEDS ORDERED: SODIUM CHLORIDE 0.9% 1000 ML 1,000 ML IV ONE (17:44)
[2021-04-24] MEDS ORDERED: ONDANSETRON 4 MG/2 ML INJ IV ONE (17:44)
[2021-04-24 18:20] LABS: Basophils # (Auto) 0.1 K/mm3 (0.0-0.1); Basophils % (Auto) 0.6 % (0.0-1.8); Eosinophils # (Auto) 0.2 K/mm3 (0.0-0.4); Eosinophils % (Auto) 1.8 % (0.0-4.3); Hematocrit 21.7 % (30.3-42.9); Lymphocytes % (Auto) 17.9 % (13.4-35.0); Mean Corpuscular HGB Conc 32 % (30-34); Mean Corpuscular Volume 82 fl (79-97); Monocytes # (Auto) 0.7 K/mm3 (0.0-0.8); Monocytes % (Auto) 5.9 % (0.0-7.3); Platelet Count 286 K/mm3 (140-440); Red Blood Count 2.64 M/mm3 (3.65-5.03); Red Cell Distribution Width 18.1 % (13.2-15.2)
[2021-04-24 19:26] VITALS: BP 127/74
[2021-04-24] MEDS ORDERED: medroxyPROGESTERone ACETATE 5 MG TAB PO STA (19:50)
== END 2021-04-24 21:18 | disposition home or self-care (01) ==
LOC: ED 11:37
DX: N93.9 Abnormal uterine and vaginal bleeding, unspecified (principal); J45.909 Unspecified asthma, uncomplicated; D64.9 Anemia, unspecified; D25.9 Leiomyoma of uterus, unspecified; E87.6 Hypokalemia; Z98.51 Tubal ligation status; Z79.899 Other long term (current) drug therapy
CPT/HCPCS: 36415; 71046; 76830; 76856; 80053; 81001; 84484; 84703; 85025; 85610; 85730; 86850; 86900; 86901; 87086; 93005; 94640; 96361; 96374; 96375; 99285; J2270; J2405; J7030; 94644

== ENCOUNTER 2022-01-10 16:43 | Emergency (ER) | payer SELFPAY ==
[2022-01-10 21:29] LABS: Basophils # (Auto) 0.1 K/mm3 (0.0-0.1); Basophils % (Auto) 0.8 % (0.0-1.8); Eosinophils # (Auto) 0.2 K/mm3 (0.0-0.4); Eosinophils % (Auto) 2.1 % (0.0-4.3); Hematocrit 29.8 % (30.3-42.9); Hemoglobin 9.5 gm/dl (10.1-14.3); Lymphocytes # (Auto) 3.2 K/mm3 (1.2-5.4); Mean Corpuscular HGB Conc 32 % (30-34); Mean Corpuscular Volume 89 fl (79-97); Monocytes # (Auto) 0.7 K/mm3 (0.0-0.8); Platelet Count 431 K/mm3 (140-440); Red Blood Count 3.36 M/mm3 (3.65-5.03); Red Cell Distribution Width 15.7 % (13.2-15.2)
[2022-01-10 21:48] LABS: Bacteria,Urine 1+ /HPF (Negative); Bilirubin,Urine NEG (Negative); Blood,Urine LG (Negative); Color,Urine Yellow (Yellow); Mucus,Urine FEW /HPF; Urobilinogen,Urine < 2.0 mg/dL (<2.0)
[2022-01-10] MEDS ORDERED: ACETAMINOPHEN 325 MG TAB PO ONE (23:13)
[2022-01-10] MEDS ORDERED: IBUPROFEN 400 MG TAB PO ONE (23:13)
--- NOTE | 2022-01-10 23:21 | Emergency Department Report ---
ED Female HPI - General Chief complaint: Vaginal Bleeding Stated complaint: BLEEDING XWKS Time Seen by Provider: 01/10/22 22:52 Source: patient, RN notes reviewed, old records reviewed Mode of arrival: Ambulatory Limitations: No Limitations - History of Present Illness Initial comments: The patient was evaluated in the emergency department for symptoms described in the history of present illness. He/she was evaluated in the context of the global COVID-19 pandemic, which necessitated consideration that the patient might be at risk for infection with the virus that causes COVID-19. Institutional protocols and algorithms that pertain to the evaluation of patients at risk for COVID-19 are in a state of rapid change based on information released by regulatory bodies including the CDC and federal and state organizations. These policies and algorithms were followed during the patient's care in the emergency department. Please note that these policies, procedures and recommendations changed on a rapid basis. During the history and physical examination I am chaperoned by EMT Shazia Jones The patient is a 51-year-old female with a known history of heavy menstrual bleeding and fibroids, currently on iron sulfate therapy, presenting to the ER today with a complaint of suprapubic cramping and vaginal bleeding for 3 weeks. She denies severe headache, neck pain, chest pain, abdominal pain, shortness of breath and dysuria. MD Complaint: vaginal bleeding -: Gradual, week(s) Severity: mild Quality: cramping Consistency: constant Improves with: none Worsens with: none Are you Now?: No - Related Data Home Medications Medication Instructions Recorded Confirmed Last Taken Montelukast 10 mg PO DAILY 04/04/19 04/04/19 Unknown hydroCHLOROthiazide 25 mg PO DAILY 04/04/19 04/04/19 Unknown Previous Rx's Medication Instructions Recorded Last Taken Type Ketorolac [Toradol] 10 mg PO Q6H PRN #14 tablet 04/04/20 Unknown Rx Benzonatate [Tessalon Perles] 100 mg PO Q8HR #30 capsule 11/01/20 Unknown Rx Potassium Chloride [K-Dur] 20 meq PO BID #8 tab 04/24/21 Unknown Rx medroxyPROGESTERone ACETATE 10 mg PO DAILY #10 tablet 04/24/21 Unknown Rx [Provera] Ferrous Sulfate [Ferrous Sulfate 324 mg PO BID #60 tab 01/10/22 Unknown Rx 324 MG] Naproxen 500 mg PO BID PRN #60 tab 01/10/22 Unknown Rx Allergies Allergy/AdvReac Type Severity Reaction Status Date / Time No Known Allergies Allergy Verified 04/24/21 12:49 ED Review of Systems ROS: Stated complaint: BLEEDING XWKS Other details as noted in HPI Constitutional: denies: fever Eyes: denies: eye discharge ENT: denies: epistaxis Respiratory: denies: cough Cardiovascular: denies: chest pain Gastrointestinal: abdominal pain. denies: vomiting Genitourinary: abnormal menses ED Past Medical Hx - Past Medical History Previous Medical History?: Yes Hx Hypertension: Yes Hx Congestive Heart Failure: No Hx Diabetes: No Hx Asthma: Yes Hx Dementia: No Additional medical history: Anemia. Uterine fibroids - Surgical History Past Surgical History?: Yes Additional Surgical History: tubal ligation - Social History Smoking Status: Never Smoker Substance Use Type: None - Medications Home Medications: Home Medications Medication Instructions Recorded Confirmed Last Taken Type Montelukast 10 mg PO DAILY 04/04/19 04/04/19 Unknown History hydroCHLOROthiazide 25 mg PO DAILY 04/04/19 04/04/19 Unknown History Ketorolac [Toradol] 10 mg PO Q6H PRN #14 tablet 04/04/20 Unknown Rx Benzonatate [Tessalon Perles] 100 mg PO Q8HR #30 capsule 11/01/20 Unknown Rx Potassium Chloride [K-Dur] 20 meq PO BID #8 tab 04/24/21 Unknown Rx medroxyPROGESTERone ACETATE 10 mg PO DAILY #10 tablet 04/24/21 Unknown Rx [Provera] Ferrous Sulfate [Ferrous Sulfate 324 mg PO BID #60 tab 01/10/22 Unknown Rx 324 MG] Naproxen 500 mg PO BID PRN #60 tab 01/10/22 Unknown Rx ED Physical Exam - General Limitations: No Limitations General appearance: alert, in no apparent distress, obese - Head Head exam: Present: atraumatic, normocephalic - Eye Eye exam: Present: normal appearance, EOMI. Absent: nystagmus - ENT ENT exam: Present: normal exam, normal orophraynx, mucous membranes moist, normal external ear exam - Neck Neck exam: Present: normal inspection, full ROM. Absent: tenderness, menin gismus - Respiratory Respiratory exam: Present: normal lung sounds bilaterally. Absent: respiratory distress, wheezes, rales, rhonchi, stridor, decreased breath sounds - Cardiovascular Cardiovascular Exam: Present: normal rhythm, tachycardia, normal heart sounds. Absent: systolic murmur, diastolic murmur, rubs, gallop - GI/Abdominal GI/Abdominal exam: Present: soft. Absent: distended, tenderness, guarding, rebound, rigid, pulsatile mass - External exam: Present: normal external exam, bleeding, other (Chaperoned by EMT Shazia Jones) Speculum exam: Present: vaginal bleeding - Extremities Exam Extremities exam: Present: normal inspection, full ROM, other (2+ pulses noted i n the bilateral upper and lower extremities. There is no palpable cord. negative Homans sign. Muscular compartments are soft. The pelvis is stable.). Absent: pedal edema, calf tenderness - Back Exam Back exam: Present: normal inspection, full ROM. Absent: tenderness, CVA tenderness (R), CVA tenderness (L), paraspinal tenderness, vertebral tenderness - Neurological Exam Neurological exam: Present: alert, oriented X3, normal gait, other (No facial droop. Tongue midline. Extraocular movements intact bilaterally. Facial sensation intact to light touch in V1, V2, V3 distribution bilaterally. 5 and a 5 strength in 4 extremities. Sensation intact to light touch in 4 extremities.). Absent: motor sensory deficit - Psychiatric Psychiatric exam: Present: normal affect, normal mood - Skin Skin exam: Present: warm, dry, intact, normal color. Absent: rash ED Course Vital Signs 01/10/22 21:25 Temperature 98.2 F Pulse Rate 112 H Respiratory 19 Rate Blood Pressure 157/94 O2 Sat by Pulse 99 Oximetry ED Medical Decision Making - Lab Data Result diagrams: 01/10/22 21:16 Vital Signs 01/10/22 21:25 Temperature 98.2 F Pulse Rate 112 H Respiratory 19 Rate Blood Pressure 157/94 O2 Sat by Pulse 99 Oximetry Lab Results 01/10/22 01/10/22 01/10/22 Range/Units 21:16 21:16 Unknown WBC 8.8 (4.5-11.0) K/mm3 RBC 3.36 L (3.65-5.03) M/mm3 Hgb 9.5 L (10.1-14.3) gm/dl Hct 29.8 L (30.3-42.9) % MCV 89 (79-97) fl MCH 28 (28-32) pg MCHC 32 (30-34) % RDW 15.7 H (13.2-15.2) % Plt Count 431 (140-440) K/mm3 Lymph % (Auto) 36.0 H (13.4-35.0) % Shannon % (Auto) 8.0 H (0.0-7.3) % Eos % (Auto) 2.1 (0.0-4.3) % Baso % (Auto) 0.8 (0.0-1.8) % Lymph # (Auto) 3.2 (1.2-5.4) K/mm3 Shannon # (Auto) 0.7 (0.0-0.8) K/mm3 Eos # (Auto) 0.2 (0.0-0.4) K/mm3 Baso # (Auto) 0.1 (0.0-0.1) K/mm3 Seg Neutrophils % 53.1 (40.0-70.0) % Seg Neutrophils # 4.7 (1.8-7.7) K/mm3 HCG, Quant < 2 (0-4) mIU/mL Urine Color Yellow (Yellow) Urine Turbidity Clear (Clear) Urine pH 6.0 (5.0-7.0) Ur Specific [place] 1.014 (1.003-1.030) Urine Protein 30 mg/dl (Negative) mg/dL Urine Glucose (UA) Neg (Negative) mg/dL Urine Ketones Neg (Negative) mg/dL Urine Blood Lg (Negative) Urine Nitrite Neg (Negative) Urine Bilirubin Neg (Negative) Urine Urobilinogen < 2.0 (<2.0) mg/dL Ur Leukocyte Esterase Neg (Negative) Urine WBC (Auto) 40.0 H (0.0-6.0) /HPF Urine RBC (Auto) 81.0 (0.0-6.0) /HPF U Epithel Cells (Auto) 1.0 (0-13.0) /HPF Urine Bacteria (Auto) 1+ (Negative) /HPF Urine Mucus Few /HPF Blood Type 01/10/22 Range/Units Unknown WBC (4.5-11.0) K/mm3 RBC (3.65-5.03) M/mm3 Hgb (10.1-14.3) gm/dl Hct (30.3-42.9) % MCV (79-97) fl MCH (28-32) pg MCHC (30-34) % RDW (13.2-15.2) % Plt Count (140-440) K/mm3 Lymph % (Auto) (13.4-35.0) % Shannon % (Auto) (0.0-7.3) % Eos % (Auto) (0.0-4.3) % Baso % (Auto) (0.0-1.8) % Lymph # (Auto) (1.2-5.4) K/mm3 Shannon # (Auto) (0.0-0.8) K/mm3 Eos # (Auto) (0.0-0.4) K/mm3 Baso # (Auto) (0.0-0.1) K/mm3 Seg Neutrophils % (40.0-70.0) % Seg Neutrophils # (1.8-7.7) K/mm3 HCG, Quant (0-4) mIU/mL Urine Color (Yellow) Urine Turbidity (Clear) Urine pH (5.0-7.0) Ur Specific [place] (1.003-1.030) Urine Protein (Negative) mg/dL Urine Glucose (UA) (Negative) mg/dL Urine Ketones (Negative) mg/dL Urine Blood (Negative) Urine Nitrite (Negative) Urine Bilirubin (Negative) Urine Urobilinogen (<2.0) mg/dL Ur Leukocyte Esterase (Negative) Urine WBC (Auto) (0.0-6.0) /HPF Urine RBC (Auto) (0.0-6.0) /HPF U Epithel Cells (Auto) (0-13.0) /HPF Urine Bacteria (Auto) (Negative) /HPF Urine Mucus /HPF Blood Type A POSITIVE - Medical Decision Making Differential diagnosis, including but not limited to: Dysfunctional uterine bleeding, fibroids, heavy menstrual bleeding, menopause Assessment and plan: 51-year-old female, who is afebrile with reassuring vital signs with improved tachycardia, who has an outpatient [employer] follow-up, currently on iron sulfate therapy, presenting to the ER with 3 weeks of vaginal bleeding and cramping. She has a chronic normocytic anemia. She denies irritative and obstructive urinary symptoms. She is not , abdomen is soft and benign, without rebound, guarding or peritoneal signs. Minimal bleeding noted on external vaginal examination. Patient is to explore options to control heavy menstrual bleeding, including uterine artery embolization, hysterectomy, or additional pharmaceutical therapy. Patient requesting something to assist with symptoms, and we will therefore prescribe Naprosyn. Counseled that she will need to follow-up with her outpatient [employer], return precautions reviewed. Critical care attestation.: If time is entered above; I have spent that time in minutes in the direct care of this critically ill patient, excluding procedure time. ED Disposition Clinical Impression: History of uterine fibroid, Vaginal bleeding, Negative test, Normocytic anemia Disposition: HOME / SELF CARE / HOMELESS Is pt being admited?: No Does the pt Need Aspirin: No Condition: Good Instructions: Abnormal Uterine Bleeding Additional Instructions: Please take the medications as directed and needed. Iron sulfate may cause constipation, black stool, and abdominal cramping. Follow-up with an [employer] doctor within the next week. Please return to the emergency room right away with new pain, worsened pain, migration of pain, projectile vomiting, change in mental status, confusion, inability tolerate liquid feeds, new, worsened or different symptoms not present on the initial emergency room evaluation Prescriptions: Naproxen 500 mg PO BID PRN #60 tab PRN Reason: Pain , Severe (7-10) Referrals: [facility] [Provider Group] - 3-5 Days [facility] [Provider Group] - 3-5 Days [facility] [Provider Group] - 3-5 Days
[2022-01-11 00:25] VITALS: BP 148/80
== END 2022-01-11 00:26 | disposition home or self-care (01) ==
LOC: ED 16:43
DX: N93.9 Abnormal uterine and vaginal bleeding, unspecified (principal); D64.9 Anemia, unspecified; Z32.02 Encounter for pregnancy test, result negative; I10 Essential (primary) hypertension; J45.909 Unspecified asthma, uncomplicated; Z98.51 Tubal ligation status; Z79.899 Other long term (current) drug therapy
CPT/HCPCS: 36415; 81001; 84702; 85025; 86900; 86901; 87086; 99283; 99284

== ENCOUNTER 2022-05-11 04:07 | Emergency (ER) | payer SELFPAY ==
[2022-05-11 04:14] VITALS: BP 165/83
[2022-05-11 04:51] LABS: Basophils # (Auto) 0.1 K/mm3 (0.0-0.1); Basophils % (Auto) 0.8 % (0.0-1.8); Eosinophils # (Auto) 0.2 K/mm3 (0.0-0.4); Hematocrit 36.2 % (30.3-42.9); Hemoglobin 11.6 gm/dl (10.1-14.3); Lymphocytes # (Auto) 2.9 K/mm3 (1.2-5.4); Lymphocytes % (Auto) 34.8 % (13.4-35.0); Mean Corpuscular HGB Conc 32 % (30-34); Mean Corpuscular Volume 87 fl (79-97); Monocytes # (Auto) 0.8 K/mm3 (0.0-0.8); Platelet Count 288 K/mm3 (140-440); Red Blood Count 4.18 M/mm3 (3.65-5.03); Red Cell Distribution Width 17.1 % (13.2-15.2)
[2022-05-11 05:13] LABS: Alanine Aminotransferase 25 units/L (7-56); Albumin 4.1 g/dL (3.9-5); BUN/Creatinine Ratio 18; Blood Urea Nitrogen 14 mg/dL (7-17); Calcium 9.4 mg/dL (8.4-10.2); Hemolysis Index 30
[2022-05-11 05:49] LABS: Bacteria,Urine 1+ /HPF (Negative); Bilirubin,Urine NEG (Negative); Blood,Urine LG (Negative); Color,Urine Red (Yellow); Mucus,Urine 1+ /HPF; Urobilinogen,Urine < 2.0 mg/dL (<2.0)
[2022-05-11 05:58] LABS: RBC,Urine > 182.0 /HPF (0.0-6.0)
[2022-05-11] MEDS ORDERED: IBUPROFEN 600 MG TAB PO ONE (10:30)
[2022-05-11] MEDS ORDERED: oxyCODONE /ACETAMINOPHEN 5-325MG TAB PO ONE (10:30)
[2022-05-11] MEDS ORDERED: ONDANSETRON 4 MG ODT TAB PO ONE (10:30)
[2022-05-11] MEDS ORDERED: cephALEXin 500 MG CAP PO ONE (10:31)
--- NOTE | 2022-05-11 10:52 | Emergency Department Report ---
ED Female HPI - General Chief complaint: Vaginal Bleeding Stated complaint: VAGINAL BLEEDING, ABDOMINAL PAIN Source: patient Mode of arrival: Ambulatory Limitations: No Limitations - History of Present Illness Initial comments: Patient is a 51 yo AA female with a h/o HTN, Asthma, Uterine Fibroids and anemia who presents ED with complaint of acute onset persistent heavy vaginal bleeding for the last 1 month. Patient states that she has had chronic uterine fibroids with bleeding for a long time and is scheduled for partial hysterectomy sometimes in the course of the year. Patient however states that in the last 2 weeks the bleeding has been more heavier with large blood clots and that she has also been feeling lightheaded intermittently. Patient however denies dizziness, syncope, chest pain or shortness of breath, dysuria, urinary frequency and urgency, vaginal discharge, low back pain, nausea and vomiting or diarrhea. MD Complaint: vaginal bleeding, pelvic pain (suprapubic), other (chronic uterine fibroids) -: Gradual, year(s) (1) Location: suprapubic Radiation: non-radiating Severity: severe Severity scale (0 -10): 7 Quality: cramping, sharp Consistency: constant Improves with: none Worsens with: menstrual period Are you Now?: No Associated Symptoms: denies other symptoms, vaginal bleeding, abdominal pain (suprapubic). denies: nausea/vomiting, fever/chills, headaches, loss of appetite, dysuria, hematuria, seizure, shortness of breath, syncope, weakness, other - Related Data Home Medications Medication Instructions Recorded Confirmed Last Taken Montelukast 10 mg PO DAILY 04/04/19 04/04/19 Unknown hydroCHLOROthiazide 25 mg PO DAILY 04/04/19 04/04/19 Unknown Previous Rx's Medication Instructions Recorded Last Taken Type Ketorolac [Toradol] 10 mg PO Q6H PRN #14 tablet 04/04/20 Unknown Rx Benzonatate [Tessalon Perles] 100 mg PO Q8HR #30 capsule 11/01/20 Unknown Rx Potassium Chloride [K-Dur] 20 meq PO BID #8 tab 04/24/21 Unknown Rx Ferrous Sulfate [Ferrous Sulfate 324 mg PO BID #60 tab 01/10/22 Unknown Rx 324 MG] Naproxen 500 mg PO BID PRN #60 tab 01/10/22 Unknown Rx Ibuprofen [Motrin] 800 mg PO Q8HR PRN #30 tablet 05/11/22 Unknown Rx cephALEXin [Keflex] 500 mg PO Q6HR #40 capsule 05/11/22 Unknown Rx medroxyPROGESTERone ACETATE 10 mg PO DAILY #14 tablet 05/11/22 Unknown Rx [Provera] traMADoL [Ultram] 50 mg PO Q6HR PRN #12 tablet 05/11/22 Unknown Rx Allergies Allergy/AdvReac Type Severity Reaction Status Date / Time No Known Allergies Allergy Verified 04/24/21 12:49 ED Review of Systems ROS: Stated complaint: VAGINAL BLEEDING, ABDOMINAL PAIN Other details as noted in HPI Constitutional: denies: chills, fever Eyes: denies: eye pain, eye discharge, vision change ENT: denies: ear pain, throat pain Respiratory: denies: cough, shortness of breath, wheezing Cardiovascular: denies: chest pain, palpitations Endocrine: no symptoms reported Gastrointestinal: abdominal pain (suprapubic). denies: nausea, vomiting, diarrhea, constipation, hematemesis, melena Genitourinary: abnormal menses (heavy vaginal bleeding). denies: urgency, dysuria, frequency, discharge Musculoskeletal: denies: back pain, joint swelling, arthralgia Skin: denies: rash, lesions Neurological: denies: headache, weakness, paresthesias Psychiatric: denies: anxiety, depression Hematological/Lymphatic: denies: easy bleeding, easy bruising ED Past Medical Hx - Past Medical History Previous Medical History?: Yes Hx Hypertension: Yes Hx Congestive Heart Failure: No Hx Diabetes: No Hx Asthma: Yes Hx Dementia: No Additional medical history: Anemia. Uterine fibroids - Surgical History Past Surgical History?: Yes Additional Surgical History: tubal ligation - Social History Smoking Status: Never Smoker Substance Use Type: None - Medications Home Medications: Home Medications Medication Instructions Recorded Confirmed Last Taken Type Montelukast 10 mg PO DAILY 04/04/19 04/04/19 Unknown History hydroCHLOROthiazide 25 mg PO DAILY 04/04/19 04/04/19 Unknown History Ketorolac [Toradol] 10 mg PO Q6H PRN #14 tablet 04/04/20 Unknown Rx Benzonatate [Tessalon Perles] 100 mg PO Q8HR #30 capsule 11/01/20 Unknown Rx Potassium Chloride [K-Dur] 20 meq PO BID #8 tab 04/24/21 Unknown Rx Ferrous Sulfate [Ferrous Sulfate 324 mg PO BID #60 tab 01/10/22 Unknown Rx 324 MG] Naproxen 500 mg PO BID PRN #60 tab 01/10/22 Unknown Rx Ibuprofen [Motrin] 800 mg PO Q8HR PRN #30 tablet 05/11/22 Unknown Rx cephALEXin [Keflex] 500 mg PO Q6HR #40 capsule 05/11/22 Unknown Rx medroxyPROGESTERone ACETATE 10 mg PO DAILY #14 tablet 05/11/22 Unknown Rx [Provera] traMADoL [Ultram] 50 mg PO Q6HR PRN #12 tablet 05/11/22 Unknown Rx ED Physical Exam - General Limitations: No Limitations General appearance: alert, in no apparent distress - Head Head exam: Present: atraumatic, normocephalic, normal inspection - Eye Eye exam: Present: normal appearance, PERRL, EOMI Pupils: Present: normal accommodation - ENT ENT exam: Present: normal exam, normal orophraynx, mucous membranes moist, TM's normal bilaterally, normal external ear exam - Neck Neck exam: Present: normal inspection, full ROM. Absent: tenderness - Respiratory Respiratory exam: Present: normal lung sounds bilaterally. Absent: respiratory distress, wheezes, rales, rhonchi, chest wall tenderness, accessory muscle use, decreased breath sounds, other - Cardiovascular Cardiovascular Exam: Present: normal rhythm, tachycardia. Absent: normal heart sounds, systolic murmur, diastolic murmur, rubs, gallop - GI/Abdominal GI/Abdominal exam: Present: soft, tenderness (suprapubic), normal bowel sounds. Absent: guarding, rebound, hyperactive bowel sounds, hypoactive bowel sounds, mass - Bi-manual exam: Present: other (pelvic exam deferred) - Extremities Exam Extremities exam: Present: normal inspection, full ROM, normal capillary refill. Absent: tenderness - Back Exam Back exam: Present: normal inspection, full ROM. Absent: tenderness, CVA tenderness (R), CVA tenderness (L), muscle spasm, paraspinal tenderness, vertebral tenderness - Neurological Exam Neurological exam: Present: alert, oriented X3, CN II-XII intact, normal gait, reflexes normal - Psychiatric Psychiatric exam: Present: normal affect, normal mood - Skin Skin exam: Present: warm, dry, intact, normal color. Absent: rash ED Course Vital Signs 05/11/22 05/11/22 04:13 10:14 Temperature 98.7 F Pulse Rate 104 H 80 Respiratory 18 16 Rate Blood Pressure 165/83 O2 Sat by Pulse 95 100 Oximetry ED Medical Decision Making - Lab Data Result diagrams: 05/11/22 04:26 05/11/22 04:26 - Medical Decision Making This is a 51 yo AA female with a h/o HTN, Asthma, Uterine Fibroids and anemia who presents ED with complaint of acute onset persistent heavy vaginal bleeding for the last 1 month. Patient states that she has had chronic uterine fibroids with bleeding for a long time and is scheduled for partial hysterectomy sometimes in the course of the year. Patient however states that in the last 2 weeks the bleeding has been more heavier with large blood clots and that she has also been feeling lightheaded intermittently. In the ED, patient is alert and oriented x3 and is not in any distress. Patient was treated for pain in the ED. Lab test results were reviewed and are all nonactionable except for mild hypokalemia 3.3 mmol/L and significant urinary tract infection in urinalysis with gross hematuria. Patient was therefore discharged home on pain medications and antibiotics and advised to follow-up with her [facility] physician in 7 to 10 days for reevaluation or return to the ED immediately if symptoms get worse. - Differential Diagnosis Uterine fibroids; DUB; Menometrorrhagia; UTI Critical care attestation.: If time is entered above; I have spent that time in minutes in the direct care of this critically ill patient, excluding procedure time. ED Disposition Clinical Impression: Dysfunctional or functional uterine hemorrhage, Acute urinary tract infection Uterine fibroid Qualifiers: Uterine leiomyoma location: unspecified location Qualified Code(s): D25.9 - Leiomyoma of uterus, unspecified Disposition: 01 HOME / SELF CARE / HOMELESS Is pt being admited?: No Does the pt Need Aspirin: No Condition: Stable Instructions: Metrorrhagia, [id number], Uterine Fibroids, [id number], Urinary Tract Infection, Adult, [id number], Menorrhagia, [id number], Abnormal Uterine Bleeding, [id number] Additional Instructions: All lab test results were reviewed. Therefore take medication with food, drink plenty of fluids, follow-up with your [employer] physician in 7 to 10 days for reevaluation. Return to the ED immediately if symptoms get worse. Prescriptions: cephALEXin [Keflex] 500 mg PO Q6HR #40 capsule Ibuprofen [Motrin] 800 mg PO Q8HR PRN #30 tablet PRN Reason: Pain , Severe (7-10) medroxyPROGESTERone ACETATE [Provera] 10 mg PO DAILY #14 tablet traMADoL [Ultram] 50 mg PO Q6HR PRN #12 tablet PRN Reason: Pain Referrals: BRETT SHERMAN MD [Staff Physician] - 3-5 Days Time of Disposition: 10:54 Print Language: SINHAL[place]
== END 2022-05-11 12:31 | disposition home or self-care (01) ==
LOC: ED 04:07
DX: N93.8 Other specified abnormal uterine and vaginal bleeding (principal); N39.0 Urinary tract infection, site not specified; D25.9 Leiomyoma of uterus, unspecified; I10 Essential (primary) hypertension; J45.909 Unspecified asthma, uncomplicated; Z79.899 Other long term (current) drug therapy
CPT/HCPCS: 36415; 80053; 81001; 85025; 87086; 99283; J3490; Q0162